=== PATIENT | female | born 1950 | race Caucasian/White ===

== ENCOUNTER → 2018-02-18 16:23 | Outpatient (CLI) | payer MEDICARE, OTHER, SELFPAY ==
--- NOTE | 2018-02-18 16:34 | DI.RAD.S_ITS ---
PROCEDURE: XR KNEE LT 1TO2V INDICATIONS: SYNOVIAL CYST OF POPLITEAL SPACE TECHNIQUE: 2 views of the knee were acquired. COMPARISON: None. FINDINGS: Bones: No fractures or dislocations. No suspicious bony lesions. Soft tissues: No joint effusion. No suspicious soft tissue calcifications. IMPRESSION: No abnormality seen. A synovial cyst would be better visualized by ultrasound or knee MRI. Dictated by: Lg Hudson M.D. on 02/18/2018 at 17:12 Approved by: Lg Hudson M.D. on 02/18/2018 at 17:12
== END ==
PROVIDERS: Family Provider Physician Assistant; PCP Physician Assistant; Visit Provider Physician Assistant
DX: M71.22 Synovial cyst of popliteal space [Baker], left knee (principal); M25.562 Pain in left knee
CPT/HCPCS: 73560

== ENCOUNTER → 2018-04-02 10:08 | Outpatient (CLI) | payer MEDICARE, OTHER, SELFPAY | PROVIDERS: Family Provider Physician Assistant; PCP Physician Assistant; Visit Provider Physician Assistant | DX: M85.88 Other specified disorders of bone density and structure, other site (principal); Z78.0 Asymptomatic menopausal state; Z82.62 Family history of osteoporosis | CPT/HCPCS: 77080 ==

== ENCOUNTER → 2018-05-22 08:56 | Outpatient (CLI) | payer MEDICARE, OTHER, SELFPAY ==
--- NOTE | 2018-05-22 | DI.CT.S_ITS ---
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 5 mm coronal and sagittal reformats were performed. For radiation dose reduction, the following was used: automated exposure control, adjustment of mA and/or kV according to patient size. COMPARISON: [facility], CT, ABDOMEN WITH CONTRAST, 04/03/2016, 9:44. [facility], CT, ABDOMEN WITH CONTRAST, 05/22/2017, 13:01. FINDINGS: Image quality: Excellent. Lung bases: Lung bases are clear. Heart size is normal. Solid organs: There are no suspicious liver lesions. Again noted are multiple stable liver hemangioma, and a right lobe liver focal scar. Gallbladder is surgically absent. There is stable mild biliary ductal dilatation.. Biliary system is non dilated. Pancreas enhances normally. Spleen is normal in size and enhancement. Remote right adrenal resection. Left adrenal is unremarkable. Kidneys demonstrate normal size and enhancement, without hydronephrosis. Peritoneum and bowel: Bowel loops demonstrate normal wall thickness and caliber. No free fluid or air. Nodes and vessels: No retroperitoneal or mesenteric adenopathy by size criteria. Aorta and inferior vena cava are normal in size. Miscellaneous: No ventral hernias. IMPRESSION: 1. Remote right adrenal resection. 2. No evidence of recurrent neoplasm or metastatic disease. 3. Stable liver hemangiomata. Dictated by: Jesus Murcia M.D. on 05/22/2018 at 11:33 Approved by: Jesus Murcia M.D. on 05/22/2018 at 11:37
[2018-05-22 09:28] LABS: Blood Urea Nitrogen 13 mg/dL (7-17); Estimated Glomerular Filt Rate > 60.0 mL/min (>60)
== END ==
LOC: CT 08:57 → LAB 09:00
PROVIDERS: Family Provider Physician Assistant; PCP Physician Assistant; Visit Provider Physician Assistant
DX: D44.10 Neoplasm of uncertain behavior of unspecified adrenal gland (principal)
CPT/HCPCS: 36415; 74160; 82565; 84520; Q9967

== ENCOUNTER → 2018-07-30 09:38 | Outpatient (CLI) | payer MEDICARE, OTHER, SELFPAY ==
--- NOTE | 2018-07-30 | DI.RAD.S_ITS ---
PROCEDURE: XR KNEE RT 1TO2V INDICATIONS: PREPATELLAR BURSITIS OF RIGHT KNEE TECHNIQUE: 2 views of the knee were acquired. COMPARISON: [facility], CR, XR KNEE LT 1TO2V, 02/18/2018, 16:18. FINDINGS: Bones: No fractures or dislocations. No suspicious bony lesions. There is minimal superior patellar enthesopathy. Soft tissues: Minimal right knee joint effusion. There is mild soft tissue edema overlying the right patella anteriorly. IMPRESSION: Minimal superior right patellar enthesopathy. Mild soft tissue edema overlying the right patella anteriorly. Dictated by: Remington Mccarthy M.D. on 07/30/2018 at 11:07 Approved by: Remington Mccarthy M.D. on 07/30/2018 at 11:11
== END ==
PROVIDERS: PCP Physician Assistant; Visit Provider Physician Assistant
DX: M70.41 Prepatellar bursitis, right knee (principal)
CPT/HCPCS: 73560

== ENCOUNTER → 2019-01-20 18:52 | Outpatient (ROUT) | payer MEDICARE, OTHER, SELFPAY ==
[2019-01-20 19:05] LABS: Add Manual Diff / Slide Review NO; Basophils Absolute Auto 0 /uL (0-100); Basophils Percent Auto 0.4 % (0-2); Eosinophils Absolute Auto 100 /uL (0-450); Eosinophils Percent Auto 2.3 % (2-4); Hematocrit 35.7 % (36-46); Hemoglobin 12.3 g/dL (12.0-16.0); Lymphocytes Absolute Auto 1500 /uL (1100-4500); Lymphocytes Percent Auto 33.2 % (25-40); Mean Corpuscular HGB Conc 34.6 % (30-36); Mean Corpuscular Hemoglobin 29.8 PG (26-34); Mean Corpuscular Volume 86.1 fL (80-100); Monocytes Absolute Auto 300 /uL (0-900); Monocytes Percent Auto 5.9 % (3-14); Neutrophils Absolute Auto 2600 /uL (1500-7000); Neutrophils Percent Auto 58.2 % (50-75); Platelet Count 184 X10^3/uL (150-400); Red Blood Cell Count 4.14 X10^6/uL (4.0-5.2); Red Cell Distribution Width 12.6 % (11.6-14.8); White Blood Cell Count 4.5 X10^3/uL (4.5-11.0)
[2019-01-20 19:16] LABS: Alanine Aminotransferase 23 IU/L (9-52); Albumin 3.8 g/dL (3.5-5.0); Albumin Globulin Ratio 1.5 (1.0-2.8); Alkaline Phosphatase 59 U/L (38-126); Aspartate Aminotransferase 26 IU/L (14-36); Bilirubin Total 0.4 mg/dL (0.2-1.3); Blood Urea Nitrogen 13 mg/dL (7-17); Calcium 9.6 mg/dL (8.4-10.2); Carbon Dioxide 29 mmol/L (22-32); Chloride 100 mmol/L (98-107); Cholesterol 150 mg/dL (140-199); Estimated Glomerular Filt Rate > 60.0 mL/min (>60); Globulin 2.6 g/dL (1.7-4.1); Glucose 83 mg/dL (80-110); HDL Cholesterol 70 mg/dL (40-60); HEMOLYSIS < 15 (0-50); LDL Cholesterol Calculated 69 mg/dL (<100); Potassium 4.4 mmol/L (3.4-5.1); Sodium 136 mmol/L (137-145); Total Protein 6.4 g/dL (6.3-8.2); Triglycerides 54 mg/dL (35-150)
[2019-01-20 19:47] LABS: TSH w/ Reflex to FT4 0.93 uIU/mL (0.47-4.68)
== END ==
PROVIDERS: PCP Physician Assistant; Visit Provider Physician Assistant
DX: E78.2 Mixed hyperlipidemia (principal); J30.2 Other seasonal allergic rhinitis; R53.83 Other fatigue
CPT/HCPCS: 80053; 80061; 84443; 85025

== ENCOUNTER → 2019-05-14 12:33 | Outpatient (CLI) | payer MEDICARE, OTHER, SELFPAY ==
[2019-05-14 14:17] LABS: BUN Creatinine Ratio 42.5 (6-22); Blood Urea Nitrogen 17 mg/dL (7-17); Estimated Glomerular Filt Rate > 60.0 mL/min (>60)
== END ==
PROVIDERS: PCP Physician Assistant; Visit Provider Physician Assistant
DX: E78.2 Mixed hyperlipidemia (principal); D35.00 Benign neoplasm of unspecified adrenal gland
CPT/HCPCS: 36415; 82565; 84520

== ENCOUNTER → 2019-05-26 08:53 | Outpatient (CLI) | payer MEDICARE, OTHER, SELFPAY ==
--- NOTE | 2019-05-26 09:52 | DI.CT.S_ITS ---
PROCEDURE: CT ABDOMEN W CON INDICATIONS: Benign neoplasm of unspecified adrenal gland TECHNIQUE: After the administration of oral and intravenous contrast, 5 mm thick sections acquired from the diaphragms to the iliac crests. 5 mm thick coronal and sagittal reformats were acquired. For radiation dose reduction, the following was used: automated exposure control, adjustment of mA and/or kV according to patient size. COMPARISON: [facility], CT, ABDOMEN WITH CONTRAST, 05/22/2017, 13:01. [facility], CT, ABDOMEN W&WO CONTRAST, 12/01/2014, 7:47. [facility], CT, CT ABDOMEN W CON, 05/22/2018, 10:10. FINDINGS: Image quality: Excellent. Lung bases: Lung bases are clear. Heart size is normal. Solid organs: Liver is normal in size and enhancement. Postoperative changes are present within hepatic segment VII. A small hemangioma is also redemonstrated at the dome of the right hepatic lobe. Gallbladder is surgically absent. Biliary system is non dilated. Pancreas enhances normally. Spleen is normal in size and enhancement. Right adrenal gland is surgically absent. No adrenal nodules. Kidneys are normal in size, without hydronephrosis. Peritoneum and bowel: Contrast enhanced bowel loops appear normal in caliber. No free fluid or air. Nodes and vessels: No retroperitoneal or mesenteric adenopathy by size criteria. Aorta and inferior vena cava are normal in size. Bones: No suspicious bony lesions. No vertebral body compression fractures. Miscellaneous: No ventral hernias. IMPRESSION: 1. No findings to suggest right adrenal gland tumor recurrence. Dictated by: Ernestina Darden M.D. on 05/26/2019 at 14:29 Approved by: Ernestina Darden M.D. on 05/26/2019 at 14:32
== END ==
PROVIDERS: PCP Physician Assistant; Visit Provider Physician Assistant
DX: D35.00 Benign neoplasm of unspecified adrenal gland (principal); D18.09 Hemangioma of other sites; Z90.49 Acquired absence of other specified parts of digestive tract
CPT/HCPCS: 74160; Q9967

== ENCOUNTER → 2019-09-29 12:37 | Outpatient (CLI) | payer MEDICARE, OTHER, SELFPAY ==
--- NOTE | 2019-09-29 | DI.RAD.S_ITS ---
PROCEDURE: XR LUMBAR SPINE 2-3V INDICATIONS: Segmental and somatic dysfunction of lumbar region TECHNIQUE: 3 views of the lumbar spine were acquired. COMPARISON: None. FINDINGS: Bones: 5 [id number] vertebrae are present. There is normal bony alignment. No vertebral body compression fractures. No suspicious bony lesions. Soft tissues: Overlying bowel gas pattern is normal. No suspicious soft tissue calcifications. IMPRESSION: Minimal degenerative disc disease along the low cervical spine. Mild facet osteoarthritis and become slightly more prominent from L3-S1. No subluxation is associated. By plain film imaging definite spinal and foraminal stenosis is not seen but MR scanning may be warranted depending on the clinical status. Dictated by: Lg Hudson M.D. on 09/29/2019 at 13:33 Approved by: Lg Hudson M.D. on 09/29/2019 at 13:34
== END ==
PROVIDERS: PCP Physician Assistant; Referring Provider Chiropractor; Visit Provider Chiropractor
DX: M99.03 Segmental and somatic dysfunction of lumbar region (principal); M54.6 Pain in thoracic spine; M47.816 Spondylosis without myelopathy or radiculopathy, lumbar region; M47.817 Spondylosis without myelopathy or radiculopathy, lumbosacral region
CPT/HCPCS: 72100

== ENCOUNTER → 2019-12-29 10:09 | Outpatient (CLI) | payer MEDICARE, OTHER, SELFPAY ==
--- NOTE | 2019-12-29 | DI.RAD.S_ITS ---
PROCEDURE: XR HIP W PEL IF DONE RT 2V INDICATIONS: PAIN IN RIGHT HIP TECHNIQUE: AP pelvis with lateral view(s) of the right hip(s). COMPARISON: [facility], CT, CT ABDOMEN W CON, 05/26/2019, 9:31. FINDINGS: Bones: No fractures or dislocations. Pelvic ring appears intact. No suspicious bony lesions. Mild joint narrowing with periarticular osteophyte formation. Degenerative disc and facet disease involves the inferior lumbar spine. Soft tissues: The visualized bowel gas pattern is normal. No suspicious soft tissue calcifications. IMPRESSION: Mild symmetric hip joint degeneration. Dictated by: Porter Castro [facility] Interpreted: Tamika Banks MD on 12/29/2019 at 10:47 Approved by: Tamika Banks M.D. on 12/29/2019 at 15:00
--- NOTE | 2019-12-29 | DI.RAD.S_ITS ---
PROCEDURE: XR KNEE RT 3V INDICATIONS: TROCHANTERIC BURSITIS OF RIGHT HIP TECHNIQUE: 3 views of the knee were acquired. COMPARISON: [facility], , KNEE 3V RIGHT, 07/17/2016, 14:27. FINDINGS: Bones: No fractures or dislocations. No suspicious bony lesions. Tricompartmental periarticular osteophyte formation. Soft tissues: No joint effusion. No suspicious soft tissue calcifications. IMPRESSION: Mild tricompartmental knee joint degeneration. Dictated by: Porter ROSAS Interpreted: Tamika Banks MD on 12/29/2019 at 10:46 Approved by: Tamika Banks M.D. on 12/29/2019 at 15:00
== END ==
PROVIDERS: PCP Physician Assistant; Referring Provider Physician Assistant; Visit Provider Physician Assistant
DX: M70.61 Trochanteric bursitis, right hip (principal); M25.551 Pain in right hip; M16.11 Unilateral primary osteoarthritis, right hip; M25.561 Pain in right knee; M17.11 Unilateral primary osteoarthritis, right knee
CPT/HCPCS: 73502; 73562

== ENCOUNTER → 2020-06-07 19:42 | Outpatient (ROUT) | payer MEDICARE, OTHER, SELFPAY | PROVIDERS: PCP Physician Assistant; Visit Provider Physician Assistant | DX: R35.0 Frequency of micturition (principal) | CPT/HCPCS: 87086 ==

== ENCOUNTER → 2021-02-03 09:05 | Outpatient (CLI) | payer MEDICARE, OTHER, SELFPAY ==
--- NOTE | 2021-02-03 10:09 | DI.CT.S_ITS ---
PROCEDURE: CT ABDOMEN PELVIS W CON INDICATIONS: Lower abdominal pain, unspecified TECHNIQUE: After the administration of oral and intravenous contrast, axial sections were acquired from the lung bases to the pubic symphysis. Coronal and sagittal reformats were performed. For radiation dose reduction, the following was used: automated exposure control, adjustment of mA and/or kV according to patient size. COMPARISON:[facility], CT, CT ABDOMEN W CON, 05/26/2019, 9:31. FINDINGS: Image quality: Excellent. Lung bases: Unremarkable. Heart: No significant findings. ABDOMEN: Liver: Liver demonstrates a nodular contour, as before. Postsurgical sequelae within hepatic segment VII, as before. No change in small hemangioma within the right hepatic dome posteriorly. Gallbladder: Is surgically absent Biliary ducts: Unremarkable. Pancreas: Unremarkable. Spleen: Unremarkable. Adrenal Glands: Unremarkable. Kidneys and Ureters: Unremarkable. Stomach and Bowel: There is mild thickening versus cell tubal distention of the gastric antrum. Small bowel is grossly unremarkable. Appendix is within normal limits. There is thickening versus suboptimal distension of the transverse colon, splenic flexure, and sigmoid colon. Peritoneum: No abnormal intraperitoneal fluid. No free air. Ventral Wall: No hernia. Abdominal Nodes: No retroperitoneal or mesenteric adenopathy by size criteria. Vessels: Aorta and inferior vena cava are normal in size. PELVIS: Pelvic Organs: 25 mm cyst within the left adnexa. Bladder: Unremarkable. Pelvic Nodes: No enlarged lymph nodes. Miscellaneous: No inguinal hernias are seen. Bones: Unremarkable. IMPRESSION: 1. Thickening versus suboptimal distension of the gastric antrum and colon. Differential considerations include infection and inflammation. Findings could be further assessed with endoscopy, if clinically indicated. 2. Normal appendix. 3. Cirrhosis. Dictated by: Keyon Allen M.D. on 02/03/2021 at 10:53 Approved by: Keyon Allen M.D. on 02/03/2021 at 10:57
== END ==
PROVIDERS: PCP Physician Assistant; Referring Provider Internal Medicine; Visit Provider Internal Medicine
DX: R10.30 Lower abdominal pain, unspecified (principal); K74.60 Unspecified cirrhosis of liver; Z90.49 Acquired absence of other specified parts of digestive tract
CPT/HCPCS: 74177

== ENCOUNTER → 2021-02-16 10:03 | Outpatient (CLI) | payer MEDICARE, OTHER, SELFPAY ==
--- NOTE | 2021-02-16 | DI.RAD.S_ITS ---
PROCEDURE: XR KNEE RT 3V INDICATIONS: Other chronic pain TECHNIQUE: 3 views of the knee were acquired. COMPARISON: [facility], , XR KNEE RT 3V, 12/29/2019, 10:21. FINDINGS: Bones: No fractures or dislocations. No suspicious bony lesions. Moderate medial compartment osteoarthritis which have progressed in the interval since prior exam. Mild patellofemoral and lateral compartment osteoarthritis. Soft tissues: Large suprapatellar joint effusion. No suspicious soft tissue calcifications. IMPRESSION: 1. Tricompartmental right knee osteoarthritis. 2. Large nonspecific suprapatellar joint effusion. Occult injury including ligamentous injury is not excluded by this study. No If symptoms and/or clinical suspicion for pathology persists, further assessment with MRI should be considered. Dictated by: Shavon Chin MD, PhD on 02/16/2021 at 12:24 Approved by: Shavon Chin MD, PhD on 02/16/2021 at 12:26
--- NOTE | 2021-02-16 | DI.RAD.S_ITS ---
PROCEDURE: XR KNEE LT 1TO2V INDICATIONS: Other chronic pain TECHNIQUE: 1 views of the knee were acquired. COMPARISON: [facility], , XR KNEE LT 1TO2V, 02/18/2018, 16:18. FINDINGS: Bones: No fractures or dislocations. No suspicious bony lesions. Mild to moderate medial and lateral compartment osteoarthritis. Soft tissues: No joint effusion. No suspicious soft tissue calcifications. IMPRESSION: Osteoarthritis. Dictated by: Shavon Chin MD, PhD on 02/16/2021 at 12:23 Approved by: Shavon Chin MD, PhD on 02/16/2021 at 12:24
== END ==
PROVIDERS: PCP Physician Assistant; Referring Provider Internal Medicine; Visit Provider Internal Medicine
DX: M17.0 Bilateral primary osteoarthritis of knee (principal); M25.561 Pain in right knee; M25.461 Effusion, right knee; G89.29 Other chronic pain
CPT/HCPCS: 73560; 73562

== ENCOUNTER → 2021-04-24 08:09 | Outpatient (CLI) | payer MEDICARE, OTHER, SELFPAY ==
[2021-04-24 11:33] LABS: COVID19 -Nasal RAPID Negative (Negative)
== END ==
PROVIDERS: PCP Physician Assistant; Visit Provider Physician Assistant
DX: Z20.822 Contact with and (suspected) exposure to COVID-19 (principal)
CPT/HCPCS: 87635; C9803

== ENCOUNTER 2021-04-25 10:08 | Day surgery (SDC) | payer MEDICARE, OTHER, SELFPAY ==
--- NOTE | 2021-04-25 | PATH_ITS ---
[facility] Accession Number: [id number] . 01 Material submitted: . PART A: colon - TRANSVERSE COLON POLYPS PART B: sigmoid colon - SIGMOID COLON POLYP . 02 Diagnosis: A. Transverse Colon, Polyps, Biopsies: Tubular adenomas. . B. Sigmoid Colon, Polyp, Biopsy: Tubular adenoma. MRV 05/02/2021 1310 Local . 02 Electronically signed: . Quyen Ashford MD, Pathologist NPI- [id number] . 01 Gross description: . A. Specimen A is received in formalin labeled colon polyp transverse and consists of three rushing-pink fragments of soft tissue, measuring 0.5 x 0.4 x 0.2 cm in aggregate. The specimen is entirely submitted in cassette A1. B. Specimen B is received in formalin labeled sigmoid colon polyp and consists of a 0.4 x 0.3 x 0.2 cm rushing-pink fragment of soft tissue, which is entirely submitted in cassette B1. ([id number]) /[facility] 04/27/2021 1630 Local . 02 Pathologist provided ICD-10: D12.3, D12.5 . 02 CPT . 468901, [id number] Performed at: 01 [facility] [address], [place], [place] [id number] MD Anand Cartagena MD Phone: [phone] Performed at: 02 [facility] [address] [place], [place] [id number] MD Quyen Ashford MD Phone: [phone]
[2021-04-25 10:24] VITALS: BP 130/68; PULSE 51; RESP 16; TEMP 36.1; O2SAT 99; BMI 21.6
--- NOTE | 2021-04-25 10:31 | PM.HP.1 ---
History of Present Illness History of Present Illness Date Patient Seen: 04/25/21 Time Patient Seen: 10:31 Chief complaint: SDC Narrative: I reviewed 's note. No changes. Last colonoscopy was 2017. Multiple tubular adenomas were removed at that time. Patient History Medical History Ganglion cyst Family & Social History Social History: household members spouse Tobacco & Substance use: Smoking Status Never smoker alcohol intake never Substance Use Type does not use Meds Home Medications and Allergies Home Medications Medication Instructions Recorded Confirmed Type aspirin 81 mg PO DAILY 04/24/21 04/25/21 History estradiol 1 tab PO DAILY 04/24/21 04/25/21 History lorazepam 1 mg tablet (Ativan) 50 mg PO DAILY 04/24/21 04/25/21 History oxybutynin chloride 5 mg 5 mg PO DAILY 04/24/21 04/25/21 History tablet,extended release 24 hr sertraline 100 mg tablet 100 mg PO DAILY 04/24/21 04/25/21 History trazodone 50 mg tablet 50 mg PO DAILY 04/24/21 04/25/21 History Allergies Allergy/AdvReac Type Severity Reaction Status Date / Time No Known Drug Allergies Allergy Verified 04/24/21 13:52 Review of Systems Review of Systems ROS: Yes All systems reviewed with the patient and are negative except as otherwise documented Exam Vital Signs (past 8 hours): - 04/25/21 10:24 Temperature 97 F L Pulse Rate 51 L Respiratory Rate 16 Blood Pressure 130/68 Pulse Oximetry 99 Oxygen Delivery Method Room Air Const General: cooperative and comfortable Orientation: alert HENUT Head: normocephalic Ears: external ears normal Nose: external nose normal Face and sinus: normal facial exam Mouth: oral mucosae normal Eyes General: appearance normal, both eyes and all related structures Neck Neck: normal visual inspection Chest Chest: normal inspection of the chest Resp Effort & Inspection: normal respiratory effort Cardio Rate: regular rate GI Inspection: normal to inspection Skin General: no rashes or lesions noted and No jaundice Neuro General: patient alert and moves all extremities Cognition: normal cognition Speech: speech normal Extrem General: no pedal edema Psych Appearance: grossly normal Assessment & Plan Assessment & Plan narrative: 70-year-old female with a personal history of colon polyps. She has an abnormal CT scan which showed left colon and gastric antrum thickening. She also had a nodular liver. EGD and colonoscopy. Therefore pursued today. Time Spent With Patient Critical Care time: I spent a total of [] minutes of critical care time on this patient's care today; this time is exclusive of procedural time.
[2021-04-25] MEDS: SODIUM CHLORIDE 0.9% 1,000 ML 84 ML IV (10:34)
--- NOTE | 2021-04-25 10:34 | PM.PREOP ---
Pre-operative Note COVID-19 COVID-19 status: Negative Result date/Date tested (Pos, Neg/Pending): 04/24/21 Interval Note History & Physical reviewed/Exam performed by Physician: Yes Changes to H&P: No ASA Class (for procedural sedation): II
--- NOTE | 2021-04-25 11:25 | P.OP.EGD&C_ITS ---
Operative Date/Time/Diagnoses Date of procedure: 04/25/21 Time of procedure: 11:25 Pre-op diagnosis: Abnormal imaging personal history of colon polyps Post-op diagnosis: same Procedure & Clinicians Study performed: EGD and colonoscopy with cold forceps polypectomy and cold snare polypectomy. Same procedure as scheduled: Yes Indications: Abnormal imaging, personal history of colon polyps Surgeon: Agustin Ramírez Procedure Notes SCOAP/Timeout: Done Procedure in detail: After the risks and benefits were explained, written and verbal informed consent was obtained. The patient was brought into the procedure room and placed into the left lateral decubitus position. Please see nurse superintendent oil field drilling notes for sedation details. The scope was introduced into the mouth through the bite block and advanced under direct visualization to the 2nd portion of the duodenum. The scope was slowly withdrawn carefully examining the mucosa for any defects or lesions. Retroflexed views were accomplished in the stomach. The stomach was decompressed, the scope was then removed from the patient who tolerated the procedure well. Patient was then turned around a digital rectal examination accomplished no significant pathology appreciated. The scope was introduced into the rectum and advanced to the cecum as identified by the appendiceal orifice and ileocecal valve. The scope was slowly withdrawn to carefully examine the mucosa for any defects or lesions. Multiple direct views were made through the dentate line for exclusion of pathology. The colon was decompressed the scope removed from the patient who tolerated the procedure well. Bowel prep adequate Pediatric colonoscope Scope withdrawal time: 15 minutes Sedation minutes: 34 Complications: none Impression: 1. Duodenum: This was normal from the bulb through the 2nd portion. 2. Stomach: No ulcers no erosions no mass lesions. No significant mucosal pathology throughout. No varices. Retroflexed views were unremarkable with the exception of a subtle sliding hiatal hernia 3. Esophagus: Squamocolumnar junction correlated with the top of the gastric folds. No acute erosive changes no strictures no mass lesions. No varices noted. 4. Colon: The patient had faint melanosis coli. In the transverse colon there were 2 diminutive polyps removed with cold forceps. In the sigmoid colon there was a 5 mm sessile polyp removed with cold snare. I did not appreciate any inflammation or thickening throughout the colon and in the left colon in particular considering CT report. Endoscopic diagnosis 1. Minimal subtle sliding hiatal hernia 2. Otherwise visually unremarkable EGD 3. Colon polyps the Post-procedure Plan for aftercare: 1. Await histopathology 2. Repeat colonoscopy 3 years. 3. Follow up GI clinic with Dr. Ramos Disposition: PACU
[2021-04-25 11:27] VITALS: BP 124/97; PULSE 51; RESP 11; TEMP 35.9; O2SAT 99
[2021-04-25 11:33] VITALS: BP 123/33; PULSE 51; RESP 12; O2SAT 100
[2021-04-25 11:38] VITALS: BP 121/57; PULSE 47; RESP 12; O2SAT 99
[2021-04-25 11:43] VITALS: BP 125/59; PULSE 45; RESP 12; TEMP 35.9; O2SAT 99
[2021-04-25 11:53] VITALS: BP 126/58; PULSE 42; RESP 12; TEMP 35.9; O2SAT 99
== END 2021-04-25 12:10 | disposition home or self-care (01) ==
PROVIDERS: PCP Physician Assistant; Referring Provider Internal Medicine Gastroenterology; Visit Provider Internal Medicine Gastroenterology
PROC: 0DJ08ZZ Inspection of Upper Intestinal Tract, Via Natural or Artificial Opening Endoscopic (ICD-10-PCS; CPT 43235; principal; 2021-04-25 13:00)
PROC: 0DJD8ZZ Inspection of Lower Intestinal Tract, Via Natural or Artificial Opening Endoscopic (ICD-10-PCS; CPT 45378; 2021-04-25 13:00)
DX: D12.3 Benign neoplasm of transverse colon (principal); Z86.010 Personal history of colon polyps; K63.89 Other specified diseases of intestine; K44.9 Diaphragmatic hernia without obstruction or gangrene; D12.5 Benign neoplasm of sigmoid colon
CPT/HCPCS: 45385; 43239; J2704

== ENCOUNTER → 2021-12-14 08:30 | Outpatient (CLI) | payer MEDICARE, OTHER, SELFPAY ==
--- NOTE | 2021-12-14 08:33 | DI.RAD.S_ITS ---
PROCEDURE: XR KNEE RT 3V INDICATIONS: bilateral chronic knee pain TECHNIQUE: 3 views of the knee were acquired. COMPARISON: [facility], , XR KNEE RT 3V, 02/16/2021, 10:05. FINDINGS: Bones: No fractures or dislocations. No suspicious bony lesions. There is mild bilateral femorotibial joint space narrowing and small intercondylar osteophytes. Soft tissues: No joint effusion. No suspicious soft tissue calcifications. IMPRESSION: Mild degenerative change. Dictated by: Ernestina Darden M.D. on 12/14/2021 at 12:40 Approved by: Ernestina Darden M.D. on 12/14/2021 at 12:40
--- NOTE | 2021-12-14 08:33 | DI.RAD.S_ITS ---
PROCEDURE: XR KNEE LT 3V INDICATIONS: bilateral chronic knee pain TECHNIQUE: 3 views of the knee were acquired. COMPARISON: [facility], CR, XR KNEE RT 3V, 02/16/2021, 10:05. FINDINGS: Bones: There is mild bilateral femorotibial compartment narrowing and intercondylar osteophytes. No acute fracture or dislocation. Soft tissues: There is likely a small knee joint effusion. IMPRESSION: Joint effusion and mild degenerative change. Dictated by: Ernestina Darden M.D. on 12/14/2021 at 12:39 Approved by: Ernestina Darden M.D. on 12/14/2021 at 12:39
== END ==
PROVIDERS: PCP Physician Assistant; Referring Provider Physician Assistant; Visit Provider Physician Assistant
DX: M25.562 Pain in left knee (principal); M25.561 Pain in right knee; G89.29 Other chronic pain
CPT/HCPCS: 73562

== ENCOUNTER → 2022-05-10 13:20 | Outpatient (CLI) | payer MEDICARE, OTHER, SELFPAY ==
--- NOTE | 2022-05-10 | DI.MG.S_ITS ---
BILATERAL DIGITAL DIAGNOSTIC MAMMOGRAM 3D/2D: 05/10/2022 CLINICAL: Mastodynia. Comparison is made to exams dated: 07/06/2021 mammogram, 06/21/2020 mammogram, and 06/16/2019 mammogram - [facility]. Both breasts are heterogeneously dense, which may obscure small masses (category c / 51-75% glandular tissue). There is a biopsy clip in the right breast. No significant masses, calcifications, or other findings are seen in either breast. There has been no significant interval change. IMPRESSION: NEGATIVE There is no mammographic evidence of malignancy. A 1 year screening mammogram is recommended. Based on the Tyrer Cuzick model (a risk assessment model) the patient's lifetime risk is 8.3% and her 10 year risk is 4.9%. According to the ACR, ACS, and NCCN guidelines, an annual breast MRI exam along with mammogram is recommended if the patient's lifetime risk is 20% or greater. This exam was interpreted at Station ID: [id number]. NOTE: For mammograms, a report in lay terms will be sent to the patient. Approximately 15% of breast malignancies will not be visualized mammographically. In the management of a palpable breast mass, a negative mammogram must not discourage biopsy of a clinically suspicious lesion. Electronically Signed By: Anshu Cruz M.D., jr/piedad:05/10/2022 13:43:38 letter sent: Normal Exam ACR BI-RADS Category 1: Negative [id number]
== END ==
PROVIDERS: PCP Physician Assistant; Referring Provider Physician Assistant; Visit Provider Physician Assistant
DX: N64.4 Mastodynia (principal)
CPT/HCPCS: 77066; G0279

== ENCOUNTER → 2022-08-02 09:44 | Outpatient (CLI) | payer MEDICARE, OTHER, SELFPAY ==
--- NOTE | 2022-08-02 10:06 | DI.DEXA.S_ITS ---
Bone Density Report Name: AMELIA RAZA Age: 72 Sex: Female Ethnicity: White Date of : 1950 Indication: osteopenia; Referring Provider: FELIPE DÍAZ Study: Bone densitometry was performed. Exam Date: August 02, 2022 Accession number: [id number] Bone Density: Region BMD T-score Z-score Classification AP Spine(L1-L4) 0.897 -1.4 0.8 Osteopenia Femoral Neck (Left) 0.756 -0.8 1.0 Normal Total Hip (Left) 0.780 -1.3 0.2 Osteopenia Femoral Neck (Right) 0.709 -1.3 0.5 Osteopenia Total Hip (Right) 0.799 -1.2 0.3 Osteopenia Total Hip Mean 0.789 -1.3 0.3 Osteopenia World Health Organization criteria for BMD impression classify patients as: Normal (T-score at or above -1.0), Osteopenia (T-score between -1.0 and -2.5), or Osteoporosis (T-score at or below -2.5). 10-year Fracture Risk(1): Major Osteoporotic Fracture 8.4% Hip Fracture 1.1% Reported Risk Factors: [place] (), Neck BMD=0.709, BMI=21.6 (1) FRAX(R) Version 3.08. Fracture probability calculated for an untreated patient. Fracture probability may be lower if the patient has received treatment. Previous Exams: -- Region Exam Age BMD T-score BMD Change BMD Change Date g/cm2 vs Baseline vs Previous -- AP Spine (L1-L4) 08/02/2022 72 0.897 -1.4 -0.033 (-3.5%)# -0.033 (-3.5%)# 04/02/2018 67 0.930 -1.1 Total Hip(Left) 08/02/2022 72 0.780 -1.3 -0.069 (-8.2%)# -0.069 (-8.2%)# 04/02/2018 67 0.850 -0.8 Total Hip(Right) 08/02/2022 72 0.799 -1.2 -0.003 (-0.4%)# -0.003 (-0.4%)# 04/02/2018 67 0.802 -1.1 -- *Denotes significance at 95% confidence level, LSC for AP Spine = 0.022 g/cm2, LSC for Total Hip = 0.027 g/cm2 # Denotes dissimilar scan types or analysis methods Impression: The patient has low bone mass, based on the Total Spine T-score. The patient has an estimated ten-year risk of hip fracture of 1.1% and an estimated ten-year risk of major fracture of 8.4%, based on the WHO FRAX algorithm. No significant bone loss was observed. Discussion: BONE DENSITY IS LOW AT ONE OR MORE SKELETAL SITES. This patient's lowest T-score is low at one or more skeletal sites. It meets the World Health Organization's (WHO) criteria for ?low bone mass? (T-score between -1.0 and -2.5). The patient's 10-year risk of fracture as calculated by FRAX is less than the threshold where pharmacological therapy is recommended by the National Osteoporosis Foundation (NOF). However, all treatment decisions require clinical judgment and consideration of individual patient factors, including patient preferences, comorbidities, previous drug use, risk factors not captured in the FRAX model (e.g., frailty, falls, vitamin D deficiency, increased bone turnover, interval significant decline in bone density) and possible under or overestimation of fracture risk by FRAX. The patient should follow a healthful lifestyle (good nutrition with adequate calcium and vitamin D, and appropriate weight-bearing exercise). Follow-Up: Consider repeating this study in 2 to 3 years to reassess this patient's status, or sooner if there is some new clinical indication. Reported by: JOSE JALLOH M.D. on 08/02/2022 10:18:00 AM.
== END ==
PROVIDERS: PCP Student in an Organized Health Care Education/Training Program; Referring Provider Student in an Organized Health Care Education/Training Program; Visit Provider Student in an Organized Health Care Education/Training Program
DX: M85.88 Other specified disorders of bone density and structure, other site (principal); Z78.0 Asymptomatic menopausal state
CPT/HCPCS: 77080

== ENCOUNTER → 2022-12-28 18:17 | Outpatient (CLI) | payer MEDICARE, OTHER, SELFPAY | PROVIDERS: PCP Student in an Organized Health Care Education/Training Program; Visit Provider Physician Assistant | DX: R19.8 Other specified symptoms and signs involving the digestive system and abdomen (principal) | CPT/HCPCS: 87086 ==

== ENCOUNTER → 2023-01-11 07:22 | Outpatient (CLI) | payer MEDICARE, OTHER, SELFPAY ==
--- NOTE | 2023-01-11 | DI.CT.S_ITS ---
PROCEDURE: CT ABDOMEN PELVIS WO CON INDICATIONS: LOWER ABD PAIN TECHNIQUE: Axial sections were acquired from the lung bases to the pubic symphysis. Coronal and sagittal reformats were performed. For radiation dose reduction, the following was used: automated exposure control, adjustment of mA and/or kV according to patient size. COMPARISON: [facility], CT, CT ABDOMEN PELVIS W CON, 02/03/2021, 10:12. FINDINGS: Image quality: Excellent. Lung bases: Lung bases are clear. Heart size is normal. Solid organs: Liver: The liver has no mass or intrahepatic biliary ductal dilatation. Surgical clips in the region of hepatic segment VII. Biliary: Status post cholecystectomy. Pancreas: The pancreas has no mass or ductal dilatation. There is no surrounding inflammation. Spleen: Normal size. There are no masses. Adrenals: Postoperative changes in the nephrectomy bed with multiple surgical clip seen. No evidence of recurrence neoplasm. Kidneys: No obstructive calculus or hydronephrosis. No solid mass. No cystic mass. Peritoneum and bowel: The distal esophagus and stomach are normal. The small bowel has a normal caliber and appearance. The terminal ileum is normal. The large bowel has a normal caliber and appearance. The appendix is normal. No free fluid or air. Nodes and vessels: No retroperitoneal or mesenteric adenopathy by size criteria. The aorta has atherosclerosis with no aneurysmal dilatation. Miscellaneous: No abdominal wall mass or hernia. PELVIS: Genitourinary: The bladder has no wall thickening or mass. No bladder calcifications. Bones: No suspicious bony lesions. No vertebral body compression fractures. IMPRESSION: 1. Postoperative changes in the right adrenalectomy bed with no evidence of recurrence neoplasm. 2. No evidence of metastatic disease. Dictated by: Daron Solano M.D. on 01/11/2023 at 10:30 Approved by: Daron Solano M.D. on 01/11/2023 at 10:37
--- NOTE | 2023-01-11 | DI.RAD.S_ITS ---
PROCEDURE: XR HIP W PEL IF DONE LT 2V INDICATIONS: HIP PAIN TECHNIQUE: AP pelvis with lateral view(s) of the left hip(s). COMPARISON: [facility], , XR HIP W PEL IF DONE RT 2V, 12/29/2019, 10:21. FINDINGS: Bones: No fractures or dislocations. Mild symmetric degenerative changes. No erosions. No interval change compared to 12/29/2019. Pelvic ring appears intact. No suspicious bony lesions. Soft tissues: The visualized bowel gas pattern is normal. No suspicious soft tissue calcifications. IMPRESSION: Mild symmetric degenerative changes, otherwise normal hips. If symptoms persist. Consider MRI. Dictated by: Daron Solano M.D. on 01/11/2023 at 9:02 Approved by: Daron Solano M.D. on 01/11/2023 at 9:03
== END ==
PROVIDERS: PCP Student in an Organized Health Care Education/Training Program; Referring Provider Student in an Organized Health Care Education/Training Program; Visit Provider Student in an Organized Health Care Education/Training Program
DX: R10.30 Lower abdominal pain, unspecified (principal); M25.552 Pain in left hip
CPT/HCPCS: 73502; 74176

== ENCOUNTER → 2023-02-19 06:32 | Outpatient (CLI) | payer MEDICARE, OTHER, SELFPAY ==
--- NOTE | 2023-02-19 06:34 | DI.CT.S_ITS ---
PROCEDURE: CT ABDOMEN PELVIS W CON INDICATIONS: lower abd pain TECHNIQUE: After the administration of oral and intravenous contrast, axial sections were acquired from the lung bases to the pubic symphysis. Coronal and sagittal reformats were performed. For radiation dose reduction, the following was used: automated exposure control, adjustment of mA and/or kV according to patient size. COMPARISON:[facility], CT, CT ABDOMEN PELVIS W CON, 02/03/2021, 10:12. FINDINGS: Image quality: Excellent. Lung bases: Unremarkable. Heart: No significant findings. ABDOMEN: Liver: Again noted is an unchanged small right lobe hepatic dome hemangioma. A 2nd small benign-appearing low-density lesion at the dome is also stable. A peripheral low-density lesion in the lateral segment of the left lobe of the liver is also stable. Again noted is a nodular contour of the surface of the liver suggesting possible cirrhotic change.. Gallbladder: Surgically absent Biliary ducts: Intrahepatic ducts and extrahepatic ducts are chronically dilated post cholecystectomy. Pancreas: Unremarkable. Spleen: Unremarkable. Adrenal Glands: Unremarkable. Kidneys and Ureters: Unremarkable. Stomach and Bowel: Stomach, small bowel loops, and colon are unremarkable. Large diffuse fecal load. Peritoneum: No abnormal intraperitoneal fluid. No free air. Ventral Wall: No hernia. Abdominal Nodes: No retroperitoneal or mesenteric adenopathy by size criteria. Vessels: Aorta and inferior vena cava are normal in size. PELVIS: Pelvic Organs: Again noted is a left adnexal cyst which has increased in size. On previous image 62/2 it measured 2.5 cm. On current image 64/2 it measures 3.1 cm. Uterus is unremarkable . Bladder: Unremarkable. Pelvic Nodes: No enlarged lymph nodes. Miscellaneous: No inguinal hernias are seen. Bones: Unremarkable. IMPRESSION: 1. Suggestion of cirrhotic change in the liver. 2. Stable low-density liver lesions. 3. Interval increase in the size of a left adnexal cystic lesion, from 2.5 cm to 3.1 cm. Findings include benign etiologies as well as indolent malignancy. Current recommendations in postmenopausal females with edge excellent cysts of this size are to image every 12 months, either with CT or ultrasound. 4. Constipation. Comment: Recommend follow-up ultrasound or CT in 12 months for the left adnexal cystic lesion. Dictated by: Jesus Murcia M.D. on 02/19/2023 at 13:03 Approved by: Jesus Murcia M.D. on 02/19/2023 at 13:14
[2023-02-19 07:23] LABS: Estimated Glomerular Filt Rate > 60 mL/min (>60)
== END ==
PROVIDERS: PCP Student in an Organized Health Care Education/Training Program; Referring Provider Registered Nurse; Visit Provider Registered Nurse
DX: N94.89 Other specified conditions associated with female genital organs and menstrual cycle (principal); K76.9 Liver disease, unspecified; K59.00 Constipation, unspecified; R10.30 Lower abdominal pain, unspecified
CPT/HCPCS: 36415; 74177; 82565; Q9967

== ENCOUNTER 2023-03-24 15:55 | Observation (INO) | payer MEDICARE, OTHER, SELFPAY ==
[2023-03-24] VITALS (26 sets, daily range): BP systolic 94–131; BP diastolic 51–89; PULSE 68–136; RESP 11–23; TEMP 36.8; O2SAT 92–100; BMI 21.2
--- NOTE | 2023-03-24 16:07 | DI.RAD.S_ITS ---
PROCEDURE: XR CHEST 1V INDICATIONS: chest pain TECHNIQUE: One view of the chest was acquired. COMPARISON: [facility], CT, CT ABDOMEN PELVIS W CON, 02/19/2023, 7:56. [facility], CR, CHEST 1 VIEW, 03/12/2015, 15:03. FINDINGS: Surgical changes and devices: Right upper quadrant clips are seen. Lungs and pleura: On this semiupright portable chest examination, no large pneumothorax or large pleural effusions are seen. No focal infiltrates are seen. Mediastinum: Mediastinal contours appear normal. Heart size is normal. Bones and chest wall: No suspicious bony lesions. Mild dextroconvex scoliotic curvature is seen. Age-appropriate bony degenerative changes are seen. Overlying soft tissues appear unremarkable. IMPRESSION: No acute cardiopulmonary abnormality is seen. Postoperative and degenerative changes are seen. Dictated by: Alexander Doherty M.D. on 03/24/2023 at 15:49 Approved by: Alexander Doherty M.D. on 03/24/2023 at 15:50
[2023-03-24 16:33] LABS: Add Manual Diff / Slide Review NO; Basophils Absolute Auto 0 /uL (0-100); Basophils Percent Auto 0.7 % (0-2); Eosinophils Absolute Auto 100 /uL (0-450); Eosinophils Percent Auto 1.8 % (2-4); Hematocrit 37.9 % (36-46); Hemoglobin 13.1 g/dL (12.0-16.0); Lymphocytes Absolute Auto 2200 /uL (1100-4500); Lymphocytes Percent Auto 36.7 % (25-40); Mean Corpuscular HGB Conc 34.6 % (30-36); Mean Corpuscular Hemoglobin 29.6 PG (26-34); Mean Corpuscular Volume 85.5 fL (80-100); Monocytes Absolute Auto 400 /uL (0-900); Monocytes Percent Auto 6.8 % (3-14); Neutrophils Absolute Auto 3200 /uL (1500-7000); Platelet Count 229 X10^3/uL (150-400); Red Blood Cell Count 4.44 X10^6/uL (4.0-5.2); Red Cell Distribution Width 13.5 % (11.6-14.8); White Blood Cell Count 5.9 X10^3/uL (4.5-11.0)
[2023-03-24 16:38] LABS: Prothrombin Time 11.2 SECONDS (9.4-12.5)
[2023-03-24 16:41] LABS: PTT Partial Thromboplastin Tim 28 SECONDS (25.1-36.5)
[2023-03-24 16:43] LABS: Alanine Aminotransferase 22 IU/L (<35); Albumin 4.7 g/dL (3.5-5.0); Albumin Globulin Ratio 1.3 (1.0-2.8); Alkaline Phosphatase 66 U/L (38-126); Aspartate Aminotransferase 27 IU/L (14-36); BUN Creatinine Ratio 33.3 (6-22); Bilirubin Total 0.5 mg/dL (0.2-1.3); Blood Urea Nitrogen 17 mg/dL (7-17); Calcium 10.1 mg/dL (8.4-10.2); Carbon Dioxide 29 mmol/L (22-32); Chloride 101 mmol/L (98-107); Creatine Kinase 39 U/L (30-135); Estimated Glomerular Filt Rate > 60 mL/min (>60); Globulin 3.6 g/dL (1.7-4.1); Glucose 100 mg/dL (80-110); HEMOLYSIS < 15 (0-50); Lipase 103 U/L (23-300); Magnesium 2.2 mg/dL (1.6-2.3); Potassium 3.7 mmol/L (3.4-5.1); Sodium 135 mmol/L (137-145); Total Protein 8.3 g/dL (6.3-8.2)
[2023-03-24 16:54] LABS: Troponin I 0.017 ng/mL (0.01-0.034)
[2023-03-24] MEDS: ASPIRIN 81 MG CHEW TAB 324 MG PO (17:30)
[2023-03-24 17:53] LABS: NT-proBNP (BNP-Adult 18+) 576 pg/mL (<125)
--- NOTE | 2023-03-24 18:14 | ED.CHESTPAIN ---
HPI - Chest Pain General Chief Complaint: Chest Pain Stated Complaint: dizzy/chest tight/post liver biopsy Time Seen by Provider: 03/24/23 17:54 Source: patient Mode of arrival: Ambulatory Limitations: no limitations History of Present Illness HPI narrative: Patient is a 72-year-old female. Not on anticoagulation. No prior history of atrial fibrillation. Approximately 1.5 weeks ago she underwent an outpatient liver biopsy. A abnormal finding was found on a CT scan that was ordered by her primary doctor. The CT scan was ordered because she was having ?stomach issues? she does not know the results of the liver biopsy. Since that time she has felt some chest tightness and dizziness and shortness of breath with exertion. No specific chest pain. No palpitations. When she is lying in bed she is not having shortness of breath when she gets up and move around it does happened. No headache. Related Data Home Medications Medication Instructions Recorded Confirmed aspirin 81 mg PO DAILY 04/24/21 03/24/23 oxybutynin chloride 5 mg 5 mg PO DAILY Bladder spasms 04/24/21 03/24/23 tablet,extended release 24 hr sertraline 100 mg tablet 150 mg PO BEDTIME Depression 04/24/21 03/24/23 trazodone 50 mg tablet 25 mg PO BEDTIME Insomnia 04/24/21 03/24/23 ascorbic acid (vitamin C) 1,000 mg 1 g PO DAILY Supplement 03/24/23 03/24/23 capsule cholecalciferol (vitamin D3) 25 25 mcg PO DAILY Supplement 03/24/23 03/24/23 mcg (1,000 unit) capsule dicyclomine 20 mg tablet 20 mg PO DAILY abdominal pain 03/24/23 03/24/23 estradiol 0.01% (0.1 mg/gram) 1 g vaginal 2XW Hormone replacement 03/24/23 03/24/23 vaginal cream evening primrose oil-linoleic 1 cap PO DAILY Supplement 03/24/23 03/24/23 acid-gamolenic acid 1,000 mg capsule ([place] Oil) lorazepam 1 mg tablet 0.5 mg PO BID PRN Anxiety 03/24/23 03/24/23 omega-3 fatty acids 1 cap PO DAILY Supplement 03/24/23 03/24/23 vit C-vit M-qbiado-exzatsmn-omega 1 cap PO DAILY [facility] 03/24/23 03/24/23 3 100 mg-15 unit-2 mg-100 mg capsule Allergies Allergy/AdvReac Type Severity Reaction Status Date / Time No Known Drug Allergies Allergy Verified 03/24/23 16:06 Review of Systems Constitutional Constitutional: Reports system reviewed and no additional complaints, except as documented Cardiovascular Cardiovascular: Reports system reviewed and no additional complaints, except as documented Respiratory Respiratory: Reports system reviewed and no additional complaints, except as documented Gastrointestinal Gastrointestinal: Reports system reviewed and no additional complaints, except as documented Integumentary/Breasts Skin/Breast: Reports system reviewed and no additional complaints, except as documented Neurologic Neurologic: Reports system reviewed and no additional complaints, except as documented Hematologic/Lymphatic On Anticoagulants: No Patient History Medical History Ganglion cyst Social History household members: spouse and children Smoking Status: Never smoker alcohol intake: never Smoking Status: Never smoker Substance Use Type: does not use Exam Initial Vital Signs Initial Vital Signs: Vital Signs Temperature 98.3 F 03/24/23 16:01 Pulse Rate 116 H 03/24/23 16:01 Respiratory Rate 16 03/24/23 16:01 Blood Pressure 126/89 03/24/23 16:01 Pulse Oximetry 100 03/24/23 16:01 Oxygen Delivery Method Room Air 03/24/23 16:01 Const General: cooperative and healthy appearing [facility] Head: normal to inspection and normocephalic Resp Effort & Inspection: normal respiratory effort Auscultation: clear to auscultation bilaterally Cardio Rate: tachycardic Rhythm: abnormal rhythm Skin General: no rashes or lesions noted Neuro General: patient alert, patient awake and moves all extremities Extrem General: No edema Course Orders Ordered: ED Orders 03/24/23 16:07 XR chest 1V Stat 03/24/23 16:15 BNP [NT-proBNP (BNP-Adult 18+)] Stat Complete Blood Count AUTO DIFF Stat Comprehensive Metabolic Panel Stat Lipase Stat Magnesium Stat PTT Partial Thromboplastin Timmy Stat Prothrombin Time INR Stat Troponin & CK Cardiac Panel Stat 03/24/23 16:19 EKG-12 Lead Stat 03/24/23 18:52 EKG-12 Lead Stat Acetaminophen (Acetaminophen 325 Mg Tablet) 650 mg PO Q6H PRN PRN Reason: Fever/Mild Pain (1-3) Al Hydrox/Mg Hydrox/Simethicone (Mag Hydrox/Alum/Simeth 30 Ml Udc) 30 ml PO Q6HR PRN PRN Reason: Dyspepsia Apixaban (Apixaban 5 Mg Tablet) 5 mg PO BID JONA Diltiazem HCl (Diltiazem 5 Mg/Ml Sdv) 10 mg IV Q2HR PRN PRN Reason: Heart Rate- High DILTIAZEM (Diltiazem 125 Mg/125 Ml-D5w) 125 mg in 125 mls @ 5 mls/hr IV TITRATE JONA; Protocol Last Titration: 03/24/23 20:13 Dose: 0 mg/hr, 0 mls/hr Documented By: Admin: 03/24/23 18:25 Dose: 5 mg/hr, 5 mls/hr Documented By: JEFRY Metoprolol Tartrate (Metoprolol Ir 25 Mg Tablet) 25 mg PO BID JONA Naloxone HCl (Naloxone 0.4 Mg/Ml Vial) 0.2 mg IV Q2MIN PRN PRN Reason: Opiate Reversal Ondansetron HCl (Ondansetron 4 Mg/2 Ml Inj) 4 mg IV Q8HR PRN PRN Reason: Nausea And Vomiting Ondansetron HCl (Ondansetron 4 Mg Odt) 4 mg PO Q8HR PRN PRN Reason: Nausea And Vomiting Discontinued Medications Aspirin (Aspirin 81 Mg Chew Tab) 324 mg PO NOW ONE Stop: 03/24/23 16:08 Last Admin: 03/24/23 17:30 Dose: 324 mg Documented By: JEFRY Diltiazem HCl (Diltiazem 5 Mg/Ml Sdv) 10 mg IV NOW ONE Stop: 03/24/23 18:16 Last Admin: 03/24/23 18:25 Dose: 10 mg Documented By: JEFRY Metoprolol Succinate (Metoprolol Er 25 Mg Tablet) 25 mg PO NOW ONE Stop: 03/24/23 19:32 Last Admin: 03/24/23 19:42 Dose: 25 mg Documented By: GABY Vital Signs Vital signs: Vital Signs - 8 hr 03/24/23 17:30 03/24/23 17:30 03/24/23 18:00 Pulse Rate 124 H 124 H Respiratory Rate 16 16 Blood Pressure 96/67 Pulse Oximetry 98 98 03/24/23 18:03 03/24/23 18:03 03/24/23 18:25 Pulse Rate 117 H 124 H Respiratory Rate 21 Blood Pressure 115/71 123/68 Pulse Oximetry 99 03/24/23 18:30 03/24/23 18:30 03/24/23 19:00 Pulse Rate 109 H Respiratory Rate 11 L Blood Pressure 101/66 111/67 Pulse Oximetry 99 03/24/23 19:00 03/24/23 19:15 03/24/23 19:15 Pulse Rate 76 76 Respiratory Rate 21 Blood Pressure 131/77 Pulse Oximetry 98 99 03/24/23 19:30 03/24/23 19:30 03/24/23 19:42 Pulse Rate 82 88 Respiratory Rate 18 Blood Pressure 107/54 L 107/54 L Pulse Oximetry 95 03/24/23 19:45 03/24/23 19:45 03/24/23 20:00 Pulse Rate 77 72 Respiratory Rate 20 16 Blood Pressure 97/57 L Pulse Oximetry 98 98 03/24/23 20:01 03/24/23 20:01 03/24/23 20:12 Pulse Rate 75 72 Respiratory Rate 15 Blood Pressure 112/63 112/63 Pulse Oximetry 97 03/24/23 20:15 03/24/23 20:15 03/24/23 20:30 Pulse Rate 76 68 Respiratory Rate 17 15 Blood Pressure 104/68 Pulse Oximetry 97 98 03/24/23 20:30 03/24/23 20:46 03/24/23 20:46 Pulse Rate 73 Respiratory Rate 16 Blood Pressure 106/51 L 108/52 L Pulse Oximetry 97 03/24/23 21:00 03/24/23 21:00 Pulse Rate 74 Respiratory Rate 17 Blood Pressure 113/59 L Pulse Oximetry 97 MDM - Chest Pain Lab Data Attestation: I reviewed the patient's lab results. 03/24/23 16:15 03/24/23 16:15 Labs: Lab Results 03/24/23 Range/Units 16:15 WBC 5.9 (4.5-11.0) X10^3/uL RBC 4.44 (4.0-5.2) X10^6/uL Hgb 13.1 (12.0-16.0) g/dL Hct 37.9 (36-46) % MCV 85.5 (80-100) fL MCH 29.6 (26-34) PG MCHC 34.6 (30-36) % RDW 13.5 (11.6-14.8) % Plt Count 229 (150-400) X10^3/uL Neut % (Auto) 54.0 (50-75) % Lymph % (Auto) 36.7 (25-40) % [place] % (Auto) 6.8 (3-14) % Eos % (Auto) 1.8 L (2-4) % Baso % (Auto) 0.7 (0-2) % Neut # (Auto) 3200 (4225-7514) /uL Lymph # (Auto) 2200 (4376-5208) /uL [place] # (Auto) 400 (0-900) /uL Eos # (Auto) 100 (0-450) /uL Baso # (Auto) 0 (0-100) /uL PT 11.2 (9.4-12.5) SECONDS INR 1.0 (0.9-1.3) APTT 28 (25.1-36.5) SECONDS Sodium 135 L (137-145) mmol/L Potassium 3.7 (3.4-5.1) mmol/L Chloride 101 (98-107) mmol/L Carbon Dioxide 29 (22-32) mmol/L BUN 17 (7-17) mg/dL Creatinine 0.51 L (0.52-1.04) mg/dL Estimated GFR > 60 (>60) mL/min BUN/Creatinine Ratio 33.3 H (6-22) Glucose 100 (80-110) mg/dL Calcium 10.1 (8.4-10.2) mg/dL Magnesium 2.2 (1.6-2.3) mg/dL Total Bilirubin 0.5 (0.2-1.3) mg/dL AST 27 (14-36) IU/L ALT 22 (<35) IU/L Alkaline Phosphatase 66 (38-126) U/L Total Creatine Kinase 39 (30-135) U/L Troponin I 0.017 (0.01-0.034) ng/mL NT-Pro-B Natriuret Pep 576 H (<125) pg/mL Total Protein 8.3 H (6.3-8.2) g/dL Albumin 4.7 (3.5-5.0) g/dL Globulin 3.6 (1.7-4.1) g/dL Albumin/Globulin Ratio 1.3 (1.0-2.8) Lipase 103 (23-300) U/L Urine Dip Bedside Urine Glucose Negative Bedside Urine Bilirubin - Negative Bedside Urine Ketone - Negative Urine Specific Mona 1.00 Bedside Urine Occult Blood +/- Bedside Urine pH 8.0 Bedside Urine Protein - Negative Bedside Urine Urobilinogen - Negative Bedside Urine Nitrite - Negative Bedside Urine Leukocytes - Negative Esterase Imaging Data Chest x-ray: Radiologist's Impression: PROCEDURE: XR CHEST 1V INDICATIONS: chest pain TECHNIQUE: One view of the chest was acquired. COMPARISON: [facility], CT, CT ABDOMEN PELVIS W CON, 02/19/2023, 7:56. [facility], CR, CHEST 1 VIEW, 03/12/2015, 15:03. FINDINGS: Surgical changes and devices: Right upper quadrant clips are seen. Lungs and pleura: On this semiupright portable chest examination, no large pneumothorax or large pleural effusions are seen. No focal infiltrates are seen. Mediastinum: Mediastinal contours appear normal. Heart size is normal. Bones and chest wall: No suspicious bony lesions. Mild dextroconvex scoliotic curvature is seen. Age-appropriate bony degenerative changes are seen. Overlying soft tissues appear unremarkable. IMPRESSION: No acute cardiopulmonary abnormality is seen. Postoperative and degenerative changes are seen. ECG Data Attestation: I personally reviewed and interpreted this ECG as follows: Interpretation: Atrial fibrillation Ventricular rate 131 Normal axis Left bundle-branch block Nonspecific ST T wave changes Repeat EKG Atrial fibrillation Ventricular rate is [address] T wave changes MDM Narrative Medical decision making narrative: Patient has a very benign abdominal exam. Is in AFib with RVR. She is never had a diagnosis of this. Not a candidate for cardioversion as we do not know specifically when she went into AFib. Most likely has been sometime within the past 1.5 weeks. Patient was given Cardizem bolus and started on a drip. This improved her heart rate however she was still in AFib. She was then given an oral dose of metoprolol. We were then able to stop the Cardizem drip. She is still in AFib but is now rate controlled. Discussed the case with Dr. Garcia hospitalist on-call who will admit for further evaluation and treatment. Discussed the need for admission with the patient. She expressed understanding and agreement. Discharge Plan Departure Patient Disposition: Admitted As Inpatient Clinical Impression: Atrial fibrillation with RVR Admit Date/Time: 03/24/23 21:04 Admit Provider: Panchito Trejo
[2023-03-24] MEDS: DILTIAZEM 125 MG/125 ML PIGGYBACK IV (18:25)
[2023-03-24] MEDS: dilTIAZem 5 MG/ML SDV 10 MG IV (18:25)
[2023-03-24] MEDS: METOPROLOL ER 25 MG TABLET PO (19:42)
--- NOTE | 2023-03-24 21:44 | DI.ECHO.S_ITS ---
[facility] +---------+ : : [address] : : : : [id number] : : : : Phone: [phone]+ Echocardiogram Report + + :Name: AMELIA RAZA Study Date: 03/25/2023 Height: 67 in : :[facility] ReadingLocation: Weight: 134 lb: : Gender: Female BSA: 1.7 m2 : :: 1950 Age: 72 yrs BP: 89/54 mmHg: :Reason For Study: ATRIAL FIBRILLATION : :Ordering Physician: ROWDY, : :TONY Performed By: Damaris Alicea : :Referring: TONY RENO : + + Interpretation Summary The left ventricle is normal in size and wall thickness. The left ventricular ejection fraction is normal. The ejection fraction is estimated to be 55-60%. There has been no significant change since the previous exam. The right ventricle is mildly dilated. The right ventricular systolic function is normal. No critical valvular pathology. No significant pulmonary hypertension. There is mild luminal irregularity and echogenicity in the abdominal aorta, suggestive of aortic atherosclerotic disease. Procedure: A two-dimensional transthoracic echocardiogram with color flow and Doppler was performed. The study quality was technically adequate. Comparison is made with the echocardiogram of 02/24/2015. The patient was in sinus bradycardia with heart rates between 42-55 bpm during the exam. Left Ventricle: The left ventricle is normal in size and wall thickness. There is no thrombus. The ejection fraction is estimated to be 55-60%. The left ventricular ejection fraction is normal. There has been no significant change since the previous exam. There are no focal wall motion abnormalities. Diastolic parameters suggest probable normal left ventricular diastolic function and normal filling pressures. Right Ventricle: The right ventricle is mildly dilated. The right ventricular systolic function is normal. Atria: The left atrium is severely dilated. The left atrium has mildly increased in size since the prior echo exam. The right atrium is moderately dilated. There is no Doppler evidence for an interatrial shunt. Mitral Valve: The mitral valve leaflets appear mildly thickened, but open well. There is mild mitral annular calcification. There is mild mitral regurgitation. Compared to the prior echo study, there has been no change in the severity of mitral regurgitation. Aortic Valve: The aortic valve is trileaflet. The aortic valve opens well. There is no aortic valve stenosis. There is mild aortic regurgitation. Previously trivial AI. Tricuspid Valve: The tricuspid valve is normal in structure and function. There is mild tricuspid regurgitation. Compared to the prior echo exam, there has been no change in TR severity. Pulmonic Valve: The pulmonic valve leaflets are thin and pliable; valve motion is normal. There is trace pulmonic regurgitation. Great Vessels: The aortic root is normal size. The dimensions of the ascending aorta are normal. There is mild luminal irregularity and echogenicity in the abdominal aorta, suggestive of aortic atherosclerotic disease. The IVC is dilated (diameter is greater than 2.1 cm) yet it collapses greater than 50% with a sniff. This suggests a right atrial pressure of 8 mm Hg. No significant pulmonary hypertension. Pericardium/ Pleura There is no pericardial effusion. There is no pleural effusion. MMode/2D Measurements & Calculations LVIDd: 4.6 cm LVOT diam: 2.0 cm LVIDs: 3.4 cm Ao root diam: 3.4 cm FS: 26.7 % asc Aorta Diam: 3.0 cm EPSS: 0.36 cm IVSd: 0.60 cm LVPWd: 0.74 cm LV maher. diameter/BSA (cm/m^2): 2.7 LV sys. diameter/BSA (cm/m^2): 2.0 LA A2 area: 23.1 cm2 RA long axis: 5.4 cm LA A4 area: 24.0 cm2 RA area: 19.0 cm2 LA length (vol): 5.6 cm RA vol: 56.6 ml LA vol: 84.0 ml RA : 33.2 ml/m2 LA vol index: 49.2 ml/m2 IVC diam: 2.2 cm RVD1 (basal): 4.1 cm RVD2 (mid): 3.1 cm TAPSE: 1.8 cm Doppler Measurements & Calculations Ao V2 max: 104.5 cm/sec LVOT Max Amaury: 77.5 cm/sec Ao V2 mean: 75.1 cm/sec LV V1 max P.4 mmHg Ao max P.4 mmHg LV V1 VTI: 16.8 cm Ao mean P.5 mmHg PAULINA(I,D): 2.1 cm2 Ao V2 VTI: 25.3 cm PAULINA(V,D): 2.3 cm2 sev ratio: 0.66 PAULINA indexed to BSA (cm^2/m^2): 1.2 MV E max amaury: 64.0 cm/sec TR max amaury: 184.4 cm/sec MV A max amaury: 27.1 cm/sec TR max P.7 mmHg MV E/A: 2.4 PA V2 max: 66.2 cm/sec Med Peak E' Amaury: 9.0 cm/sec PA V2 mean: 48.1 cm/sec E/E' med: 7.1 PA mean P.99 mmHg Lat Peak E' Amaury: 9.4 cm/sec PA pr(Accel): 27.6 mmHg E/E' lat: 6.8 E/e' average: 7.0 MV dec time: 0.25 sec SV(LVOT): 52.2 ml Reading Physician:09:26 AM
[2023-03-24 23:59] LABS: MRSA (Nasal) PCR Not Detected (Not Detect)
[2023-03-25 04:00] VITALS: BP 102/58; PULSE 63; RESP 23; TEMP 36.1; O2SAT 100
[2023-03-25 04:42] LABS: Add Manual Diff / Slide Review NO; Basophils Absolute Auto 0 /uL (0-100); Basophils Percent Auto 0.6 % (0-2); Eosinophils Absolute Auto 100 /uL (0-450); Eosinophils Percent Auto 1.7 % (2-4); Hematocrit 34.3 % (36-46); Lymphocytes Absolute Auto 2200 /uL (1100-4500); Lymphocytes Percent Auto 47.8 % (25-40); Mean Corpuscular Hemoglobin 29.7 PG (26-34); Mean Corpuscular Volume 84.9 fL (80-100); Monocytes Absolute Auto 400 /uL (0-900); Neutrophils Absolute Auto 1900 /uL (1500-7000); Neutrophils Percent Auto 41.9 % (50-75); Platelet Count 199 X10^3/uL (150-400); Red Blood Cell Count 4.04 X10^6/uL (4.0-5.2); Red Cell Distribution Width 13.7 % (11.6-14.8); White Blood Cell Count 4.6 X10^3/uL (4.5-11.0)
[2023-03-25 04:48] LABS: BUN Creatinine Ratio 32.6 (6-22); Blood Urea Nitrogen 14 mg/dL (7-17); Calcium 9.6 mg/dL (8.4-10.2); Carbon Dioxide 28 mmol/L (22-32); Chloride 104 mmol/L (98-107); Estimated Glomerular Filt Rate > 60 mL/min (>60); Glucose 88 mg/dL (80-110); HEMOLYSIS < 15 (0-50); Magnesium 2.2 mg/dL (1.6-2.3); Potassium 4.4 mmol/L (3.4-5.1); Sodium 135 mmol/L (137-145)
--- NOTE | 2023-03-25 06:06 | P.HP_ITS ---
History of Present Illness History of Present Illness Date Patient Seen: 03/24/23 Chief complaint: dizzy/chest tight/post liver biopsy Narrative: 72 y/o with PMH of depression, OP, developed nausea, vague abdominal tenderness, exertional dyspnea, 1-2 weeks ago. She was referred by PCP for outpatient CT abdomen, and subsequently underwent liver biopsy. She does not have biopsy results, apparently not malignant. In the ED with new onset rapid A-fib. She was given 10 mg Diltiazem IVP, followed by drip for several hours. She was then given 25 mg of metoprolol po. At the time of admission her rate slowed down. At 6 am she is hypotensive 89/54 and bradycardic 39 complaining on mild headache. [facility] Medical History (Updated 03/25/23 @ 06:23 by Panchito Garcia MD) Anxiety and depression Urine incontinence Depression Ganglion cyst Social History household members: spouse and children Smoking Status: Never smoker alcohol intake: never Meds Home Medications and Allergies Home Medications Medication Instructions Recorded Confirmed Type aspirin 81 mg PO DAILY 04/24/21 03/24/23 History oxybutynin chloride 5 mg 5 mg PO DAILY Bladder spasms 04/24/21 03/24/23 History tablet,extended release 24 hr sertraline 100 mg tablet 150 mg PO BEDTIME Depression 04/24/21 03/24/23 History trazodone 50 mg tablet 25 mg PO BEDTIME Insomnia 04/24/21 03/24/23 History ascorbic acid (vitamin C) 1,000 mg 1 g PO DAILY Supplement 03/24/23 03/24/23 History capsule cholecalciferol (vitamin D3) 25 25 mcg PO DAILY Supplement 03/24/23 03/24/23 History mcg (1,000 unit) capsule dicyclomine 20 mg tablet 20 mg PO DAILY abdominal pain 03/24/23 03/24/23 History estradiol 0.01% (0.1 mg/gram) 1 g vaginal 2XW Hormone replacement 03/24/23 03/24/23 History vaginal cream evening primrose oil-linoleic 1 cap PO DAILY Supplement 03/24/23 03/24/23 History acid-gamolenic acid 1,000 mg capsule ([place] Oil) lorazepam 1 mg tablet 0.5 mg PO BID PRN Anxiety 03/24/23 03/24/23 History omega-3 fatty acids 1 cap PO DAILY Supplement 03/24/23 03/24/23 History vit C-vit B-dewcko-hvhlfwsn-omega 1 cap PO DAILY [facility] 03/24/23 03/24/23 History 3 100 mg-15 unit-2 mg-100 mg capsule Allergies Allergy/AdvReac Type Severity Reaction Status Date / Time No Known Drug Allergies Allergy Verified 03/24/23 16:06 Review of Systems Constitutional Comments: w/o fever or chills Cardiovascular Comments: w/o palpitations or chest pain Respiratory Comments: exertional dyspnea Gastrointestinal Comments: abdominal tenderness, nausea Genitourinary Comments: chronic urinary incontinence, w/o dysuria Neurologic Comments: w/o weakness or numbness Exam Vital Signs (past 8 hours): - 03/24/23 22:28 03/25/23 04:00 Temperature 96.9 F L Pulse Rate 63 Respiratory Rate 23 Blood Pressure 102/58 L Pulse Oximetry 100 Oxygen Delivery Method Room Air Oxygen Flow Rate 0 Oxygen Delivery Method Room Air Oxygen Flow Rate 0 Const Other: laying in bed in no distress HENMT Other: normocephalic Eyes Other: cyril, eomi Resp Other: CTA Cardio Other: irregularly irregular GI Other: not distended Skin Other: w/o rashes Neuro Other: w/o deficits Extrem Other: w/o swelling Psych Other: lucid, decisional Objective ECG Impression: Rapid A-fib Labs 03/25/23 03:55 03/25/23 03:55 Labs: Laboratory Results - last 24 hr 03/24/23 03/24/23 03/25/23 16:15 22:25 03:55 WBC 5.9 4.6 RBC 4.44 4.04 Hgb 13.1 12.0 Hct 37.9 34.3 L MCV 85.5 84.9 MCH 29.6 29.7 MCHC 34.6 35.0 RDW 13.5 13.7 Plt Count 229 199 Neut % (Auto) 54.0 41.9 L Lymph % (Auto) 36.7 47.8 H [place] % (Auto) 6.8 8.0 Eos % (Auto) 1.8 L 1.7 L Baso % (Auto) 0.7 0.6 Neut # (Auto) 3200 1900 Lymph # (Auto) 2200 2200 [place] # (Auto) 400 400 Eos # (Auto) 100 100 Baso # (Auto) 0 0 PT 11.2 INR 1.0 APTT 28 Sodium 135 L 135 L Potassium 3.7 4.4 Chloride 101 104 Carbon Dioxide 29 28 BUN 17 14 Creatinine 0.51 L 0.43 L Estimated GFR > 60 > 60 BUN/Creatinine Ratio 33.3 H 32.6 H Glucose 100 88 Calcium 10.1 9.6 Magnesium 2.2 2.2 Total Bilirubin 0.5 AST 27 ALT 22 Alkaline Phosphatase 66 Total Creatine Kinase 39 Troponin I 0.017 NT-Pro-B Natriuret Pep 576 H Total Protein 8.3 H Albumin 4.7 Globulin 3.6 Albumin/Globulin Ratio 1.3 Lipase 103 Nasal Screen MRSA (PCR) Not detected Assessment & Plan Assessment and plan (1) Atrial fibrillation with RVR: Status: Acute Plan: - telemetry monitoring - likely started 2 weeks ago - after the Tx with ED - bradycardic and hypotensive, still in A-fib - Echo pending - given ASA 324 in ED - started Eliquis - reassess (2) Depression: Status: Acute (3) Urine incontinence: Status: Acute Plan: Oxybutynin (4) Anxiety and depression: Status: Acute Plan: Zoloft, Trazodone, Ativan Quality VTE Deep Vein Thrombosis/Pulmonary Embolism Present on Admission: No
[2023-03-25 06:55] VITALS: BP 89/54; PULSE 39; RESP 14; O2SAT 98
[2023-03-25 08:10] VITALS: BP 86/52; PULSE 50; RESP 16; O2SAT 100
[2023-03-25] MEDS: OXYBUTYNIN 5 MG ER TAB PO (08:41)
[2023-03-25] MEDS: APIXABAN 5 MG TABLET PO (08:41)
[2023-03-25 09:07] VITALS: TEMP 36.1
[2023-03-25 10:14] VITALS: BP 92/53; PULSE 50
--- NOTE | 2023-03-25 10:38 | PM.DS.1 ---
History of Present Illness History of Present Illness Date Patient Seen: 03/25/23 Time Patient Seen: 10:38 Chief complaint: dizzy/chest tight/post liver biopsy Narrative: Per admitting provider, 72 y/o with PMH of depression, OP, developed nausea, vague abdominal tenderness, exertional dyspnea, 1-2 weeks ago. She was referred by PCP for outpatient CT abdomen, and subsequently underwent liver biopsy. She does not have biopsy results, apparently not malignant. In the ED with new onset rapid A-fib. She was given 10 mg Diltiazem IVP, followed by drip for several hours. She was then given 25 mg of metoprolol po. At the time of admission her rate slowed down. At 6 am she is hypotensive 89/54 and bradycardic 39 complaining on mild headache. Discharge Providers Provider Date of admission: 03/24/23 21:04 Discharge Date: 03/25/23 Primary care physician: Delaney Rios PA-C Discharge provider: Roland Strong DO Summary Hospital Course Discharge Diagnosis: (1) Paroxysmal Atrial fibrillation with RVR, RVR resolved (2) Depression: (3) Urine incontinence, chronic (4) Anxiety and depression: Hospital Course: This is a 72 year old female who presented to the emergency room and was admitted with a new diagnosis of atrial fibrillation. It is unclear if this was related to recent liver biopsy a little over a week ago, but had no abdominal pain or symptoms to warrant further imaging at this time. She was initially in RVR in the ED, started on diltiazem infusion and given oral metoprolol. After this, patient developed bradycardia into the 30s. She had no symptoms at that time. Her HR improved with witholding of these medications and she coverted to NSR. She had a mild headache but no ongoing symptoms and felt improved. Echocardiogram was unremarkable. She was started on apixaban given elevated [id number] score, and provided a coupon for this for 30 days. Ongoing anticoagulation should be discussed with primary care provider if there is cost concerns with this medication. She reports resting HR in the 40s typically at home. She was given a prescription for 12.5 mg of metoprolol daily (she was given 25 mg in the ER). She was advised not to start this medication tomorrow unless HR is above 60. If she continues to remain braydcardic this medication could also be used as needed if her RVR returns. Further outpatient evaluation with PCP is recommended, and consideration for cardiology referral. Time Spent with Patient Time spent: Greater than 30 minutes Exam Vital Signs (past 8 hours): - 03/25/23 04:00 03/25/23 06:55 03/25/23 08:10 Temperature 96.9 F L Pulse Rate 63 39 L 50 L Respiratory Rate 23 14 16 Blood Pressure 102/58 L 89/54 L 86/52 L Pulse Oximetry 100 98 100 Oxygen Delivery Method Oxygen Flow Rate 0 0 0 03/25/23 08:55 03/25/23 09:07 03/25/23 10:14 Temperature 97.0 F L Pulse Rate 50 L Respiratory Rate Blood Pressure 92/53 L Pulse Oximetry Oxygen Delivery Method Room Air Oxygen Flow Rate Oxygen Delivery Method Room Air Oxygen Flow Rate 0 Narrative Exam Narrative: General:? Patient is well developed and well nourished, in no distress at this time. HEENT:? Normocephalic, atraumatic, extraocular muscles intact, oral pharynx is clear and mucous membranes are moist. Neck: supple and symmetric, trachea is midline, no cervical adenopathy. Negative for JVD Chest:? Normal AP diameter and contour without kyphoscoliosis, no tachypnea, equal chest rise bilaterally. Lungs:? CTA b/l no wheezing rhonchi or rales. Cardio:?RRR no m/r/g. Abdomen: S NT ND. No CVA tenderness. Musculoskeletal:? Muscle strength and tone are equal within normal limits, no deformity. Extremities: No edema or joint effusions. No cyanosis or clubbing. Skin:? Pale,? Warm to touch,dry and intact without rashes, ulcerations or petechiae.? Neuro:? Alert and orientated x3,? sensation to touch intact in all extremities, no gross deficits noted of cranial nerves. Psych:? Patient has a well-kept appearance, appropriate affect, mental status attitude thought context and judgment are appropriate for age. Objective Labs 03/25/23 03:55 03/25/23 03:55 Labs: Laboratory Results - last 24 hr 03/24/23 03/24/23 03/25/23 16:15 22:25 03:55 WBC 5.9 4.6 RBC 4.44 4.04 Hgb 13.1 12.0 Hct 37.9 34.3 L MCV 85.5 84.9 MCH 29.6 29.7 MCHC 34.6 35.0 RDW 13.5 13.7 Plt Count 229 199 Neut % (Auto) 54.0 41.9 L Lymph % (Auto) 36.7 47.8 H [place] % (Auto) 6.8 8.0 Eos % (Auto) 1.8 L 1.7 L Baso % (Auto) 0.7 0.6 Neut # (Auto) 3200 1900 Lymph # (Auto) 2200 2200 [place] # (Auto) 400 400 Eos # (Auto) 100 100 Baso # (Auto) 0 0 PT 11.2 INR 1.0 APTT 28 Sodium 135 L 135 L Potassium 3.7 4.4 Chloride 101 104 Carbon Dioxide 29 28 BUN 17 14 Creatinine 0.51 L 0.43 L Estimated GFR > 60 > 60 BUN/Creatinine Ratio 33.3 H 32.6 H Glucose 100 88 Calcium 10.1 9.6 Magnesium 2.2 2.2 Total Bilirubin 0.5 AST 27 ALT 22 Alkaline Phosphatase 66 Total Creatine Kinase 39 Troponin I 0.017 NT-Pro-B Natriuret Pep 576 H Total Protein 8.3 H Albumin 4.7 Globulin 3.6 Albumin/Globulin Ratio 1.3 Lipase 103 Nasal Screen MRSA (PCR) Not detected [facility] Medical History (Updated 03/25/23 @ 06:23 by Panchito Garcia MD) Anxiety and depression Urine incontinence Depression Ganglion cyst Social History household members: spouse and children Smoking Status: Never smoker alcohol intake: never Discharge Plan Discharge Plan Patient Disposition: Home Provider Discharge Comment: You were admitted to the hospital with atrial fibrillation, which was treated in the ER but you developed a low heart rate. I do recommend a beta germaine, which you should take daily but do not start unless your HR is above 60 at home. Do not take it if your heart rate in the morning is below 60. If your heart rate is always below 60 at home, you can use this medication as needed if your HR becomes fast again. I do recommend a blood thinner for now, please discuss ongoing treatment with your primary care provider as soon as possible. Discharge orders & Medications Prescriptions: New apixaban 5 mg tablet 5 mg PO BID 30 Days Qty: 60 0RF metoprolol succinate 25 mg tablet extended release 24 hr 12.5 mg PO DAILY 90 Days Qty: 45 0RF Continued oxybutynin chloride 5 mg tablet extended release 24hr 5 mg PO DAILY sertraline 100 mg tablet 150 mg PO BEDTIME trazodone 50 mg tablet 25 mg PO BEDTIME dicyclomine 20 mg tablet 20 mg PO DAILY lorazepam 1 mg tablet 0.5 mg PO BID MDD 1 mg PRN (Reason: Anxiety) estradiol 0.01 % (0.1 mg/gram) Cream 1 g VAGINAL 2XW cholecalciferol (vitamin D3) 25 mcg (1,000 unit) Capsule 25 mcg PO DAILY omega-3 fatty acids Capsule 1 cap PO DAILY [place] Oil 1,000 mg Capsule 1 cap PO DAILY vit C-vit T-bqkyed-csb-om-3 [id number] cu-pbok-aj-mg Capsule 1 cap PO DAILY ascorbic acid (vitamin C) 1,000 mg Capsule 1 g PO DAILY Discontinued aspirin 81 mg PO DAILY Follow up/Referrals: Delaney Rios, [facility] [Primary Care Provider] - Diet/Activity/Treatments Diet: Diet as Tolerated and Regular Activity: As tolerated, no restrictions. Visit Report/Discharge Packet Instructions: DI for Atrial Fibrillation, Metoprolol, Apixaban Stand Alone Forms: Patient Portal/API, Stroke Signs & Symptoms Discharge Data Primary Care Provider: Delaney Rios Attending Provider: Panchito Trejo Admit Date/Time: 03/24/23 21:04 Quality VTE Deep Vein Thrombosis/Pulmonary Embolism Present on Admission: No
--- NOTE | 2023-03-25 12:18 | CM.DANOTE ---
DCP Assessment Note Brief Patient is a 72yo F here following afib/dizzy/tight chest. PCP Delaney Reese Medicare and Analy WILSON reviewed EMR. From provider in rounds, patient likely to d/c today pending echo results. Patient d/c home prior to being seen by this author. From chart, patient lives at home with spouse and adult son in [place]. No needs from CM team identified at this time. Plan: d/c home with family today, no needs from CM team. STEVE Santiago Discharge Planning/Care Management Advanced directive, confirm from FAMILY Start: 03/25/23 08:53 Freq: Q24H Status: Discharge Protocol: Document 03/25/23 08:53 KERVIN (Rec: 03/25/23 08:54 KERVIN [id number]) Advance Directive, confirm on record Time 08:54 Person contacted pt Copy received No CM Discharge Assessment Start: 03/25/23 12:17 Freq: Status: Active Protocol: Document 03/25/23 12:17 SL (Rec: 03/25/23 12:18 [id number]) Discharge Planning Assessment Assigned [employer] STEVE Dinero DPOA/Assigned Designee Name Alphonse Patterson (spouse) Contact Information [phone] Advance Directives? Yes Advance Directives on File No History Provided By Medical Record Prior Living Arrangements House Comment Lives with spouse and adult son Household Members spouse,children Barriers to Discharge No Discharge Plan Home Transportation Arrangement family in [place] Referrals Initiated None needed Whiteboard Updated in Patient Room with No name and ext. # of [employer] Review Status In Process Next Review Type Continued Stay Review
== END 2023-03-25 12:03 | disposition home or self-care (01) ==
LOC: ED 18:19 → AC 21:23 → ICU 03-25 07:47 → AC 03-25 11:22
PROVIDERS: Emergency Medicine; Admitting Provider Internal Medicine; Emergency Provider Emergency Medicine; PCP Student in an Organized Health Care Education/Training Program; Referring Provider Emergency Medicine; Visit Provider Internal Medicine
DX: I48.91 Unspecified atrial fibrillation (principal); F32.A Depression, unspecified; R32 Unspecified urinary incontinence; F41.9 Anxiety disorder, unspecified; I48.0 Paroxysmal atrial fibrillation
CPT/HCPCS: 36415; 71045; 80048; 80053; 81003; 82550; 83690; 83735; 83880; 84484; 85025; 85610; 85730; 87797; 93005; 93306; 96365; 96366; 96376; 99284; G0378

== ENCOUNTER 2023-03-27 11:02 | Emergency (ER) | payer MEDICARE, OTHER, SELFPAY ==
[2023-03-24 22:28] VITALS: BMI 21.2
--- NOTE | 2023-03-27 | DI.RAD.S_ITS ---
PROCEDURE: XR CHEST 1V INDICATIONS: FALL TECHNIQUE: One view of the chest was acquired. COMPARISON: [facility], CR, XR CHEST 1V, 03/24/2023, 16:21. FINDINGS: Surgical changes and devices: None. Lungs and pleura: Lungs are clear. No pleural effusions or pneumothorax. Mediastinum: Mediastinal contours appear normal. Heart size is normal. Bones and chest wall: No suspicious bony lesions. Overlying soft tissues appear unremarkable. IMPRESSION: No acute cardiopulmonary abnormality is seen. Dictated by: Ernestina Darden M.D. on 03/27/2023 at 12:08 Approved by: Ernestina Darden M.D. on 03/27/2023 at 12:13
[2023-03-27 11:21] VITALS: BP 147/64; PULSE 46; RESP 16; TEMP 36.4; O2SAT 100; BMI 21.2
--- NOTE | 2023-03-27 11:35 | DI.CT.S_ITS ---
PROCEDURE: CT HEAD/BRAIN WO CON INDICATIONS: head pressure left side TECHNIQUE: Noncontrast 4.5 mm thick angled axial sections acquired from the foramen magnum to the vertex, with coronal and sagittal reformats. For radiation dose reduction, the following was used: automated exposure control, adjustment of mA and/or kV according to patient size. COMPARISON: None. FINDINGS: Image quality: Excellent. CSF spaces: Basal cisterns are patent. No extra-axial fluid collections. The ventricles are symmetric in size and shape. Brain: No intracranial bleeds or masses. There is cerebral volume loss for age, with resultant ventricular and sulcal prominence. There are periventricular and deep white matter chronic small vessel ischemic changes. There is intracranial internal carotid artery atherosclerosis. Skull and face: Calvarium and visualized facial bones appear intact, without suspicious lesions. Sinuses: Visualized sinuses and mastoids are clear. IMPRESSION: No imaging explanation is found for this patient's presenting symptoms. To the limits of this noncontrast study, no findings masses or mass effect can be seen. No acute intracranial process is seen. No significant paranasal sinus disease is seen. Dictated by: Alexander Doherty M.D. on 03/27/2023 at 10:56 Approved by: Alexander Doherty M.D. on 03/27/2023 at 10:57
--- NOTE | 2023-03-27 12:57 | ED_ITS ---
HPI - Recheck/Abnormal Lab/Rx General Chief Complaint: Recheck/Abnormal Lab/Rx Stated Complaint: sent by provider, feeling pressure L side face Time Seen by Provider: 03/27/23 11:28 Source: patient Mode of arrival: Ambulatory History of Present Illness HPI narrative: Patient presents for L sided eye fuzziness and pressure on the L side of her face. Patient recently discharged from the hospital after gbeing diagnosed with new onset a fib. Patient takes metoprolol and eliquis and has been compliant with her medications. Patient mentioned her symptoms off-handed to a nurse who recommended she come in for evaluation. patient wears glasses at baseline. Related Data Home Medications Medication Instructions Recorded Confirmed oxybutynin chloride 5 mg 5 mg PO DAILY Bladder spasms 04/24/21 03/24/23 tablet,extended release 24 hr sertraline 100 mg tablet 150 mg PO BEDTIME Depression 04/24/21 03/24/23 trazodone 50 mg tablet 25 mg PO BEDTIME Insomnia 04/24/21 03/24/23 ascorbic acid (vitamin C) 1,000 mg 1 g PO DAILY Supplement 03/24/23 03/24/23 capsule cholecalciferol (vitamin D3) 25 25 mcg PO DAILY Supplement 03/24/23 03/24/23 mcg (1,000 unit) capsule dicyclomine 20 mg tablet 20 mg PO DAILY abdominal pain 03/24/23 03/24/23 estradiol 0.01% (0.1 mg/gram) 1 g vaginal 2XW Hormone replacement 03/24/23 03/24/23 vaginal cream evening primrose oil-linoleic 1 cap PO DAILY Supplement 03/24/23 03/24/23 acid-gamolenic acid 1,000 mg capsule ([place] Oil) lorazepam 1 mg tablet 0.5 mg PO BID PRN Anxiety 03/24/23 03/24/23 omega-3 fatty acids 1 cap PO DAILY Supplement 03/24/23 03/24/23 vit C-vit L-htvlmr-tckmizzb-omega 1 cap PO DAILY [facility] 03/24/23 03/24/23 3 100 mg-15 unit-2 mg-100 mg capsule Previous Rx's Medication Instructions Recorded apixaban 5 mg tablet 5 mg PO BID 30 days #60 tabs 03/25/23 metoprolol succinate 25 mg 12.5 mg (1/2 x 25 mg) PO DAILY 90 03/25/23 tablet,extended release 24 hr days #45 tabs Allergies Allergy/AdvReac Type Severity Reaction Status Date / Time No Known Drug Allergies Allergy Verified 03/24/23 16:06 Review of Systems Review of Systems Narrative: Negative except as noted above Patient History Medical History (Updated 03/27/23 @ 13:20 by Bell Griffith MD) Anxiety and depression Urine incontinence Depression Ganglion cyst Social History household members: spouse and children Smoking Status: Never smoker alcohol intake: never Smoking Status: Never smoker Substance Use Type: does not use Exam Initial Vital Signs Initial Vital Signs: Vital Signs Temperature 97.5 F L 03/27/23 11:21 Pulse Rate 46 L 03/27/23 11:21 Respiratory Rate 16 03/27/23 11:21 Blood Pressure 147/64 H 03/27/23 11:21 Pulse Oximetry 100 03/27/23 11:21 Oxygen Delivery Method Room Air 03/27/23 11:21 Const: Awake, alert, no acute distress, nontoxic appearing Head: atraumatic, no reproducible tenderness to palpation Eyes: PERRL, EOMI, conjunctiva normal, IOP OD 15 OS 17, visual acuity (per nursing notes), peripheral vision normal ENT: Atraumatic, dentition normal, mucous membranes moist Cardiac: regular rate, regular rhythm RESP: unlabored, clear bilaterally, no wheezing GI: Atraumatic, soft, nontender, nondistended, no rebound, no guarding MSK: Atraumatic, full range of motion, pulses equal Skin: Warm, Dry, intact, no rashes Neuro: AO x3, CN II-XII grossly intact, moves all extremities Psych: affect normal, mood normal, not suicidal, not homicidal Course Course Course Narrative: Well-appearing patient with vague left-sided head/eye pain and the sensation that her vision on the left-hand side is fuzzy. Visual acuity is at patient's baseline. Intra-ocular pressure is normal. CT reviewed, unremarkable. Uncertain etiology of patient's symptoms. Recommended patient follow up with Ophthalmology if she continues to feel fuzziness in her vision. Patient states that she has a primary care doctor's appointment within the week and we will ask for a referral at that time. ED return precautions discussed at bedside. Patient expressed understanding of the plan and is in agreement at this time. All questions answered at the time of discharge. Orders Ordered: Discontinued Medications Proparacaine HCl (Proparacaine 0.5% Ophth Debbie) 1 drops EYE-BOTH NOW ONE Stop: 03/27/23 12:58 Last Admin: 03/27/23 13:00 Dose: 1 1000units Documented By: AMY Vital Signs Vital signs: Vital Signs - 8 hr 03/27/23 11:21 Temperature 97.5 F L Pulse Rate 46 L Respiratory Rate 16 Blood Pressure 147/64 H Pulse Oximetry 100 Oxygen Delivery Method Room Air Discharge Plan Departure Patient Disposition: Home Clinical Impression: Headache Instructions: DI for Headache Activity Restrictions/Additional Instructions: Talk to your primary care doctor about following up with an lead application architect. Prescriptions: No Action oxybutynin chloride 5 mg tablet extended release 24hr 5 mg PO DAILY sertraline 100 mg tablet 150 mg PO BEDTIME trazodone 50 mg tablet 25 mg PO BEDTIME dicyclomine 20 mg tablet 20 mg PO DAILY lorazepam 1 mg tablet 0.5 mg PO BID MDD 1 mg PRN (Reason: Anxiety) estradiol 0.01 % (0.1 mg/gram) Cream 1 g VAGINAL 2XW cholecalciferol (vitamin D3) 25 mcg (1,000 unit) Capsule 25 mcg PO DAILY omega-3 fatty acids Capsule 1 cap PO DAILY [place] Oil 1,000 mg Capsule 1 cap PO DAILY vit C-vit B-nuowrb-tvt-om-3 [id number] kc-doqu-ea-mg Capsule 1 cap PO DAILY ascorbic acid (vitamin C) 1,000 mg Capsule 1 g PO DAILY apixaban 5 mg tablet 5 mg PO BID 30 Days Qty: 60 0RF metoprolol succinate 25 mg tablet extended release 24 hr 12.5 mg PO DAILY 90 Days Qty: 45 0RF Referrals: Delaney Rios PA-C [Primary Care Provider] - Stand Alone Forms: Patient Portal/API
[2023-03-27] MEDS: PROPARACAINE 0.5% OPHTH SOL 1 DROPS EYE-BOTH (13:00)
[2023-03-27 13:24] VITALS: BP 117/57; PULSE 50; RESP 16; O2SAT 100
== END 2023-03-27 13:25 | disposition home or self-care (01) ==
PROVIDERS: Emergency Provider Emergency Medicine; PCP Student in an Organized Health Care Education/Training Program
DX: R51.9 Headache, unspecified (principal)
CPT/HCPCS: 70450; 71045; 99282; 99283

== ENCOUNTER → 2023-05-13 14:32 | Outpatient (CLI) | payer MEDICARE, OTHER, SELFPAY ==
[2023-03-24 22:28] VITALS: BMI 21.2
--- NOTE | 2023-05-13 14:34 | DI.MG.S_ITS ---
BILATERAL DIGITAL SCREENING MAMMOGRAM 3D/2D WITH CAD: 05/13/2023 CLINICAL: Routine screening. Family history of breast cancer. Comparison is made to exams dated: 05/10/2022 mammogram - [facility], 07/06/2021 mammogram, and 06/21/2020 mammogram - [facility]. Both breasts are heterogeneously dense, which may obscure small masses (category c / 51-75% glandular tissue). Current study was also evaluated with a Computer Aided Detection (CAD) system. There is a biopsy clip in the right breast. No significant masses, calcifications, or other findings are seen in either breast. There has been no significant interval change. IMPRESSION: NEGATIVE There is no mammographic evidence of malignancy. A 1 year screening mammogram is recommended. Based on the Tyrer Cuzick model (a risk assessment model) the patient's lifetime risk is 14.7% and her 10 year risk is 9.5%. According to the ACR, ACS, and NCCN guidelines, an annual breast MRI exam along with mammogram is recommended if the patient's lifetime risk is 20% or greater. This exam was interpreted at Station ID: [id number]. NOTE: For mammograms, a report in lay terms will be sent to the patient. Approximately 15% of breast malignancies will not be visualized mammographically. In the management of a palpable breast mass, a negative mammogram must not discourage biopsy of a clinically suspicious lesion. Electronically Signed By: Ronaldo osei/piedad:05/15/2023 11:42:04 letter sent: Normal Exam ACR BI-RADS Category 1: Negative [id number]
== END ==
PROVIDERS: PCP Student in an Organized Health Care Education/Training Program; Referring Provider Student in an Organized Health Care Education/Training Program; Visit Provider Student in an Organized Health Care Education/Training Program
DX: Z12.31 Encounter for screening mammogram for malignant neoplasm of breast (principal); Z80.3 Family history of malignant neoplasm of breast; R92.333 Mammographic heterogeneous density, bilateral breasts
CPT/HCPCS: 77063; 77067

== ENCOUNTER → 2023-07-18 07:36 | Outpatient (CLI) | payer MEDICARE, OTHER, SELFPAY ==
[2023-03-24 22:28] VITALS: BMI 21.2
[2023-07-18 08:19] LABS: Cholesterol 155 mg/dL (140-199); HDL Cholesterol 66 mg/dL (40-60); LDL Cholesterol Calculated 80 mg/dL (<100); Triglycerides 45 mg/dL (35-150)
[2023-07-18 08:51] LABS: Thyroid Stimulating Hormone 1.17 uIU/mL (0.47-4.68)
== END ==
LOC: LAB 07:38
PROVIDERS: PCP Student in an Organized Health Care Education/Training Program; Referring Provider Internal Medicine Cardiovascular Disease; Visit Provider Internal Medicine Cardiovascular Disease
DX: I48.91 Unspecified atrial fibrillation (principal); Z13.29 Encounter for screening for other suspected endocrine disorder
CPT/HCPCS: 36415; 80061; 84439; 84443

== ENCOUNTER → 2023-08-21 11:10 | Outpatient (CLI) | payer MEDICARE, OTHER, SELFPAY ==
[2023-03-24 22:28] VITALS: BMI 21.2
--- NOTE | 2023-08-21 11:12 | DI.CT.S_ITS ---
PROCEDURE: CT CERVICAL SPINE WO CON INDICATIONS: Headache, unspecified; Cervicalgia TECHNIQUE: Noncontrast 3 mm thick sections acquired from the skull base to the T4 level. Sagittal and coronal reformats were then constructed. For radiation dose reduction, the following was used: automated exposure control, adjustment of mA and/or kV according to patient size. COMPARISON: None. FINDINGS: Image quality: Excellent. Bones: Normal bone mineralization. There is straightening cervical lordosis present. Hypertrophic facet joints present throughout the exam associated with grade 1 anterior spondylolisthesis at C2-3 and C6-7. Disc space narrowing and hypertrophic arthropathy C3-4, C4-5 and C5-6. Severe right foraminal stenosis C3-4 and C4-5 Soft tissues: Prevertebral soft tissues are normal in thickness. No paravertebral hematomas. No apical pneumothoraces. IMPRESSION: Multilevel degenerative disc disease and arthropathy results in severe right foraminal stenosis C3-4 and C4-5 as well as degenerative grade 1 anterior spondylolisthesis C2-3 and C6-7 Approved by: Kapil Zuñiga M.D. on 08/21/2023 at 15:32
--- NOTE | 2023-08-21 11:12 | DI.CT.S_ITS ---
PROCEDURE: CT HEAD/BRAIN WO CON INDICATIONS: Headache, unspecified; Cervicalgia TECHNIQUE: Noncontrast 4.5 mm thick angled axial sections acquired from the foramen magnum to the vertex, with coronal and sagittal reformats. For radiation dose reduction, the following was used: automated exposure control, adjustment of mA and/or kV according to patient size. COMPARISON: Merged With [facility], CT, CT HEAD/BRAIN WO CON, 03/27/2023, 11:44. FINDINGS: Image quality: Diagnostic. CSF spaces: Basal cisterns are patent. No extra-axial fluid collections. Ventricles are normal in size and shape. Brain: No midline shift. No intracranial masses or hemorrhage. Riley-white matter interface is normal. Skull and face: Calvarium and visualized facial bones are intact, without suspicious lesions. Sinuses: Visualized sinuses and mastoids are clear. IMPRESSION: Unremarkable CT of the brain. Incidental nasal septal deviation to the left Approved by: Kapil Zuñiga M.D. on 08/21/2023 at 15:49
== END ==
PROVIDERS: PCP Student in an Organized Health Care Education/Training Program; Referring Provider Student in an Organized Health Care Education/Training Program; Visit Provider Student in an Organized Health Care Education/Training Program
DX: R51.9 Headache, unspecified (principal); R42 Dizziness and giddiness; J34.2 Deviated nasal septum; M47.812 Spondylosis without myelopathy or radiculopathy, cervical region; M48.02 Spinal stenosis, cervical region; M43.12 Spondylolisthesis, cervical region; M50.30 Other cervical disc degeneration, unspecified cervical region
CPT/HCPCS: 70450; 72125

== ENCOUNTER → 2023-09-06 08:45 | Outpatient (CLI) | payer MEDICARE, OTHER, SELFPAY ==
[2023-03-24 22:28] VITALS: BMI 21.2
--- NOTE | 2023-09-06 08:46 | DI.NM.S_ITS ---
PROCEDURE: NM KARIME PERF SPECT R&S PHARM Rest and pharmacological stress myocardial perfusion SPECT with gated imaging and ejection fraction RADIOPHARMACEUTICAL: 11.5 mCi Tc-99m tetrafosmin IV at rest and 25.7 mCi Tc-99m tetrafosmin IV at peak effect of pharmacological stress. A 4-noj-vrpjiiyp was performed. INDICATIONS: Unspecified atrial fibrillation TECHNIQUE: Radiopharmaceutical was injected at peak stress test, and also at rest. SPECT images were obtained. SPECT myocardial perfusion images were displayed in short axis, horizontal long axis, and vertical long axis views. Gated images were reviewed using [place] de [place] software. COMPARISON: None. CARDIAC STRESS: A pharmacologic stress test was performed under the supervision of an attending staff, using an infusion of regadenoson 0.4 mg IV. Hemodynamic data: There is normal blood pressure and heart rate response to pharmacologic stress. Symptoms: The patient denied anginal chest pain. EKG: No diagnostic changes of ischemia; no ectopy. FINDINGS: Raw data: There is good myocardial uptake of radiotracer. No significant motion artifacts. Vcyr-sd-fotba ratio is 0.31 (normal is less than 0.38 for tetrafosmin tracer). Left ventricle function: Gated images demonstrate normal left ventricular wall thickening. No segmental wall motion abnormalities. No transient ischemic dilation; TID is 0.93 (normal less than 1.3). Left ventricle resting end diastolic volume is 92 mL. Left ventricle stress ejection fraction is >75%; normal range is above 45%. Myocardial perfusion: There is normal distribution of activity in the right and left ventricular myocardium. No fixed or reversible perfusion defects. IMPRESSION: Low risk study. No evidence of pharmacologic induced ischemia or scar. Normal LV size with hyperdynamic function. Dictated by: Chanelle Guo D.O. on 09/06/2023 at 16:58 Approved by: Chanelle Guo D.O. on 09/06/2023 at 17:00
--- NOTE | 2023-09-06 08:46 | DI.ECHO.S_ITS ---
[facility] : : [address] : : [place] : : [address] : : Phone: [phone] Echocardiogram Report + + :Name: AMELIA RAZA Study Date: 09/06/2023 Height: 67 in : :[facility] ReadingLocation: Weight: 140 lb : : Gender: Female BSA: 1.7 m2 : :: 1950 Age: 73 yrs BP: 117/73 mmHg: :Reason For Study: ATRIAL FIBRILLATION : :Ordering Physician: ROBER, : :CHANELLE Garcia Performed By: Anshu Peterson : :Referring: CHANELLE GUO : + + Interpretation Summary The patient was in sinus bradycardia with heart rates between 42-48 bpm during the exam. The ejection fraction is estimated to be 55-60%. The left atrium is mildly dilated. The right ventricle is mildly dilated. The right ventricular systolic function is normal. There is mild mitral regurgitation. There is mild aortic regurgitation. Pulmonary artery pressures cannot be estimated because of the lack of a measurable TR jet velocity but the IVC suggests a CVP of around 8 mmHg. Compared to the prior study dated 03/25/2023, no significant change. Procedure: A two-dimensional transthoracic echocardiogram with color flow and Doppler was performed. The study quality was technically adequate. Comparison is made with the echocardiogram of 03/25/2023. The patient was in sinus bradycardia with heart rates between 42-48 bpm during the exam. Left Ventricle: The left ventricle is normal in size and wall thickness. The ejection fraction is estimated to be 55-60%. Diastolic function could not be accurately assessed due to contradictory data. Right Ventricle: The right ventricle is mildly dilated. The right ventricular systolic function is normal. Atria: The left atrium is mildly dilated. Borderline right atrial enlargement. The interatrial septum grossly appears intact with no obvious evidence for an atrial septal defect. Mitral Valve: The mitral valve is normal. There is no mitral valve stenosis. There is mild mitral regurgitation. Aortic Valve: The aortic valve opens well. There is no aortic valve stenosis. There is mild aortic regurgitation. Tricuspid Valve: The tricuspid valve is normal in structure and function. There is no tricuspid stenosis. There is trace tricuspid regurgitation. Pulmonary artery pressures cannot be estimated because of the lack of a measurable TR jet velocity but the IVC suggests a CVP of around 8 mmHg. Pulmonic Valve: The pulmonic valve is not well visualized. There is no pulmonic valvular stenosis. There is no pulmonic valvular regurgitation. Great Vessels: The aortic root is normal size. The dimensions of the ascending aorta are normal. The IVC is dilated (diameter is greater than 2.1 cm) yet it collapses greater than 50% with a sniff. This suggests a right atrial pressure of 8 mm Hg. Pericardium/ Pleura There is no pericardial effusion. There is no pleural effusion. MMode/2D Measurements & Calculations LVIDd: 4.5 cm LVOT diam: 2.1 cm LVIDs: 3.2 cm Ao root diam: 3.4 cm FS: 29.2 % asc Aorta Diam: 2.9 cm IVSd: 0.96 cm Ao Arch Diam (Prox Trans): 2.8 cm LVPWd: 0.95 cm LV maher. diameter/BSA (cm/m^2): 2.6 LV sys. diameter/BSA (cm/m^2): 1.8 LA A2 area: 19.3 cm2 RA long axis: 5.0 cm LA A4 area: 23.5 cm2 RA area: 16.7 cm2 LA length (vol): 6.4 cm RA vol: 47.8 ml LA vol: 60.3 ml RA : 27.5 ml/m2 LA vol index: 34.7 ml/m2 IVC diam: 2.8 cm RVD1 (basal): 3.4 cm RVD2 (mid): 3.1 cm TAPSE: 3.0 cm Doppler Measurements & Calculations Ao V2 max: 146.4 cm/sec LVOT Max Amaury: 106.5 cm/sec Ao V2 mean: 85.3 cm/sec LV V1 max P.5 mmHg Ao max P.6 mmHg LV V1 VTI: 26.0 cm Ao mean P.4 mmHg PAULINA(I,D): 2.6 cm2 Ao V2 VTI: 34.7 cm PAULINA(V,D): 2.5 cm2 sev ratio: 0.75 PAULINA indexed to BSA (cm^2/m^2): 1.5 MV E max amaury: 57.1 cm/sec TR max amaury: 201.4 cm/sec MV A max amaury: 54.9 cm/sec TR max P.2 mmHg MV E/A: 1.0 PA V2 max: 82.0 cm/sec Med Peak E' Amaury: 8.8 cm/sec PA V2 mean: 53.7 cm/sec E/E' med: 6.5 PA mean P.3 mmHg Lat Peak E' Amaury: 9.3 cm/sec PA pr(Accel): 13.9 mmHg E/E' lat: 6.2 E/e' average: 6.3 MV dec time: 0.17 sec SV(OT): 89.2 ml Reading Physician:05:50 PM
== END ==
LOC: NUCM 08:45
PROVIDERS: PCP Student in an Organized Health Care Education/Training Program; Referring Provider Internal Medicine Cardiovascular Disease; Visit Provider Internal Medicine Cardiovascular Disease
DX: I08.0 Rheumatic disorders of both mitral and aortic valves (principal); I48.91 Unspecified atrial fibrillation
CPT/HCPCS: 78452; 93017; 93306; A9502; J2785

== ENCOUNTER → 2023-11-05 07:34 | Outpatient (CLI) | payer MEDICARE, OTHER, SELFPAY ==
[2023-03-24 22:28] VITALS: BMI 21.2
--- NOTE | 2023-11-05 07:38 | DI.RAD.S_ITS ---
PROCEDURE: XR SHOULDER RT MIN 2V INDICATIONS: Pain in right shoulder TECHNIQUE: 3 views of the shoulder were acquired. COMPARISON: None. FINDINGS: Bones: No fractures or dislocations. No suspicious bony lesions. Visualized ribs appear intact. Mild acromioclavicular moderate glenohumeral arthritic change. Soft tissues: No suspicious soft tissue calcifications. IMPRESSION: Acromioclavicular and glenohumeral arthritic change. Dictated by: Tamika Banks M.D. on 11/05/2023 at 12:42 Approved by: Tamika Banks M.D. on 11/05/2023 at 12:42
== END ==
PROVIDERS: PCP Student in an Organized Health Care Education/Training Program; Referring Provider Internal Medicine Cardiovascular Disease; Visit Provider Internal Medicine Cardiovascular Disease
DX: M25.511 Pain in right shoulder (principal)
CPT/HCPCS: 73030

== ENCOUNTER → 2023-11-08 07:45 | Outpatient (CLI) | payer MEDICARE, OTHER, SELFPAY ==
[2023-03-24 22:28] VITALS: BMI 21.2
--- NOTE | 2023-11-08 07:46 | DI.NM.S_ITS ---
PROCEDURE: NM EXERCISE TREADMILL NON NUC COMPARISON: None. INDICATIONS: Bradycardia, unspecified FINDINGS: Total exercise time was 6 minutes and 36 seconds. Test was terminated secondary to fatigue. No chest pains voiced. Maximum heart rate obtained is under 45 bpm which is 97% of max braided heart rate. Maximum blood pressure was 170/80 [place] [address]. JOY of 0%. 7.[address] depressions were noted in the inferior lateral leads starting at 5 minutes [address] depression resolved at 1 minute into recovery. Rate related intraventricular conduction block was noted. This persisted into recovery. Paroxysmal atrial fibrillation with rapid ventricular response also developed in recovery with associated repolarization abnormalities with downward sloping ST depression. IMPRESSION: 1. Positive exercise treadmill stress test in terms of ischemia. 2. Average exercise tolerance. 3. Rate related intraventricular conduction block. 4. Paroxysmal atrial fibrillation noted. Dictated by: Fredi Best M.D. on 11/08/2023 at 17:31 Approved by: Fredi Best M.D. on 11/08/2023 at 17:38
== END ==
PROVIDERS: PCP Student in an Organized Health Care Education/Training Program; Referring Provider Internal Medicine Cardiovascular Disease; Visit Provider Internal Medicine Cardiovascular Disease
DX: I48.0 Paroxysmal atrial fibrillation (principal); I45.4 Nonspecific intraventricular block; R00.1 Bradycardia, unspecified
CPT/HCPCS: 93017

== ENCOUNTER → 2024-01-16 07:15 | Outpatient (CLI) | payer MEDICARE, OTHER, SELFPAY ==
[2023-03-24 22:28] VITALS: BMI 21.2
[2024-01-16 08:16] LABS: Add Manual Diff / Slide Review NO; Basophils Absolute Auto 0 /uL (0-100); Basophils Percent Auto 0.4 % (0-2); Eosinophils Absolute Auto 100 /uL (0-450); Eosinophils Percent Auto 1.6 % (2-4); Hematocrit 36.8 % (36-46); Lymphocytes Absolute Auto 1600 /uL (1100-4500); Lymphocytes Percent Auto 35.9 % (25-40); Mean Corpuscular HGB Conc 35.4 % (30-36); Mean Corpuscular Hemoglobin 30.5 PG (26-34); Mean Corpuscular Volume 86.2 fL (80-100); Monocytes Absolute Auto 300 /uL (0-900); Monocytes Percent Auto 6.8 % (3-14); Neutrophils Absolute Auto 2400 /uL (1500-7000); Neutrophils Percent Auto 55.3 % (50-75); Platelet Count 202 X10^3/uL (150-400); Red Blood Cell Count 4.26 X10^6/uL (4.0-5.2); Red Cell Distribution Width 13.2 % (11.6-14.8); White Blood Cell Count 4.4 X10^3/uL (4.5-11.0)
[2024-01-16 08:36] LABS: Blood Urea Nitrogen 15 mg/dL (7-17); Calcium 9.6 mg/dL (8.4-10.2); Carbon Dioxide 29 mmol/L (22-32); Chloride 99 mmol/L (98-107); Estimated Glomerular Filt Rate > 60 mL/min (>60); Glucose 75 mg/dL (80-110); HEMOLYSIS < 15 (0-50); Potassium 4.1 mmol/L (3.4-5.1); Sodium 133 mmol/L (137-145)
== END ==
PROVIDERS: PCP Student in an Organized Health Care Education/Training Program; Referring Provider Orthopaedic Surgery Foot and Ankle Surgery; Visit Provider Orthopaedic Surgery Foot and Ankle Surgery
DX: Z01.812 Encounter for preprocedural laboratory examination (principal); R73.9 Hyperglycemia, unspecified
CPT/HCPCS: 36415; 80048; 83036; 85025

== ENCOUNTER → 2024-05-15 13:07 | Outpatient (CLI) | payer MEDICARE, OTHER, SELFPAY ==
[2023-03-24 22:28] VITALS: BMI 21.2
--- NOTE | 2024-05-15 13:08 | DI.MG.S_ITS ---
BILATERAL DIGITAL SCREENING MAMMOGRAM 3D/2D WITH CAD: 05/15/2024 CLINICAL: Routine screening. Family history of breast cancer. Comparison is made to exams dated: 05/13/2023 mammogram, 05/10/2022 mammogram - [facility], and 07/06/2021 mammogram - [facility]. The breasts are heterogeneously dense, which may obscure small masses (category c / 51-75% glandular tissue). Current study was also evaluated with a Computer Aided Detection (CAD) system. There is a biopsy clip in the right breast. No significant masses, calcifications, or other findings are seen in either breast. There has been no significant interval change. IMPRESSION: NEGATIVE There is no mammographic evidence of malignancy. A 1 year screening mammogram is recommended. Based on the Tyrer Cuzick model (a risk assessment model) the patient's lifetime risk is 14.0% and her 10 year risk is 9.7%. According to the ACR, ACS, and NCCN guidelines, an annual breast MRI exam along with mammogram is recommended if the patient's lifetime risk is 20% or greater. This exam was interpreted at Station ID: [id number]. NOTE: For mammograms, a report in lay terms will be sent to the patient. Approximately 15% of breast malignancies will not be visualized mammographically. In the management of a palpable breast mass, a negative mammogram must not discourage biopsy of a clinically suspicious lesion. Electronically Signed By: Mario du/piedad:05/15/2024 15:48:35 letter sent: Normal Exam ACR BI-RADS Category 1: Negative
== END ==
PROVIDERS: PCP Family Medicine; Referring Provider Family Medicine; Visit Provider Family Medicine
DX: Z12.31 Encounter for screening mammogram for malignant neoplasm of breast (principal); R92.333 Mammographic heterogeneous density, bilateral breasts; Z80.3 Family history of malignant neoplasm of breast
CPT/HCPCS: 77063; 77067

== ENCOUNTER 2024-07-16 20:38 | Emergency (ER) | payer MEDICARE, OTHER, SELFPAY ==
[2023-03-24 22:28] VITALS: BMI 21.2
[2024-07-16 20:41] VITALS: BP 149/67; PULSE 62; RESP 14; TEMP 37.1; O2SAT 99
--- NOTE | 2024-07-16 20:46 | EKG_ITS ---
[facility] [id number] [place] [id number] Test Date: 2024-07-16 Pat Name: Ashley Hopper Department: Room: Gender: Female [employer] Handler: OPAL HARRELL : 1950 Requested By: Order Number: [id number] Reading MD: Alphonse Hamilton MD Measurements Intervals [place] Rate: 57 P: 67 MA: 156 QRS: 84 QRSD: 90 T: 69 QT: 418 QTc: 406 Interpretive Statements Sinus bradycardia Cannot rule out Anterior infarct , age undetermined Electronically Signed On 07-17-2024 6:42:34 PDT by Alphonse Hamilton MD
--- NOTE | 2024-07-16 20:50 | DI.RAD.S_ITS ---
PROCEDURE: XR CHEST 1V INDICATIONS: chest pain TECHNIQUE: One view of the chest was acquired. COMPARISON: [facility], CR, XR CHEST 1V, 03/27/2023, 11:12. FINDINGS: Surgical changes and devices: None. Lungs and pleura: Lungs are clear. No pleural effusions or pneumothorax. Mediastinum: Mediastinal contours appear normal. Heart size is normal. Bones and chest wall: No suspicious bony lesions. Overlying soft tissues appear unremarkable. IMPRESSION: No acute cardiopulmonary abnormality is seen. Approved by: Genet Huff M.D.,Ph.D. on 07/16/2024 at 21:45
[2024-07-16 21:03] LABS: Add Manual Diff / Slide Review NO; Basophils Absolute Auto 100 /uL (0-100); Basophils Percent Auto 0.9 % (0-2); Eosinophils Absolute Auto 100 /uL (0-450); Eosinophils Percent Auto 0.7 % (2-4); Lymphocytes Absolute Auto 2600 /uL (1100-4500); Lymphocytes Percent Auto 27.7 % (25-40); Mean Corpuscular HGB Conc 34.4 % (30-36); Mean Corpuscular Hemoglobin 29.8 PG (26-34); Mean Corpuscular Volume 86.6 fL (80-100); Monocytes Absolute Auto 700 /uL (0-900); Monocytes Percent Auto 7.7 % (3-14); Neutrophils Absolute Auto 5800 /uL (1500-7000); Platelet Count 297 X10^3/uL (150-400); Red Blood Cell Count 4.04 X10^6/uL (4.0-5.2); Red Cell Distribution Width 15.9 % (11.6-14.8); White Blood Cell Count 9.2 X10^3/uL (4.5-11.0)
[2024-07-16] MEDS: ASPIRIN 81 MG CHEW TAB 324 MG PO (21:06)
[2024-07-16 21:10] LABS: Prothrombin Time 11.3 SECONDS (9.4-12.5)
[2024-07-16 21:12] LABS: PTT Partial Thromboplastin Tim 29 SECONDS (25.1-36.5)
[2024-07-16 21:15] LABS: Alanine Aminotransferase 30 IU/L (<35); Albumin 4.2 g/dL (3.5-5.0); Albumin Globulin Ratio 1.4 (1.0-2.8); Alkaline Phosphatase 88 U/L (38-126); Aspartate Aminotransferase 34 IU/L (14-36); BUN Creatinine Ratio 37.5 (6-22); Bilirubin Total 0.4 mg/dL (0.2-1.3); Blood Urea Nitrogen 18 mg/dL (7-17); Calcium 9.7 mg/dL (8.4-10.2); Carbon Dioxide 29 mmol/L (22-32); Chloride 97 mmol/L (98-107); Creatine Kinase 30 U/L (30-135); Estimated Glomerular Filt Rate > 60 mL/min (>60); Globulin 2.9 g/dL (1.7-4.1); Glucose 105 mg/dL (80-110); HEMOLYSIS < 15 (0-50); Lipase 190 U/L (23-300); Magnesium 2.1 mg/dL (1.6-2.3); Sodium 133 mmol/L (137-145); Total Protein 7.1 g/dL (6.3-8.2)
[2024-07-16 21:26] LABS: NT-proBNP (BNP-Adult 18+) 222 pg/mL (<125); Troponin I < 0.012 ng/mL (0.01-0.034)
[2024-07-16 22:47] VITALS: PULSE 57; O2SAT 99
[2024-07-16 22:48] VITALS: BP 101/62; PULSE 54; RESP 19; O2SAT 99
[2024-07-16 23:00] VITALS: BP 106/57; PULSE 54; RESP 22; O2SAT 98
[2024-07-16 23:30] VITALS: BP 115/58; PULSE 55; RESP 21; O2SAT 98
--- NOTE | 2024-07-16 23:39 | ED.CHESTPAIN ---
HPI - Chest Pain General Chief Complaint: Chest Pain Stated Complaint: afib, tightness in chest, nausea taking px meds Time Seen by Provider: 07/16/24 23:39 Source: patient Mode of arrival: Ambulatory History of Present Illness HPI narrative: 74-year-old female with a past medical history paroxysmal AFib on Eliquis, anxiety, depression, comes into the ED from home for evaluation of chest tightness She states that she has been taking medications for constipation states that her last bowel movement was this morning. States that she does have a history of anxiety/panic attacks so took half a lorazepam but feels like her symptoms remain therefore decided come into the ED for further evaluation treatment. She denies any other symptoms such as headache visual disturbances fever chills or any other GI/ symptoms at this time. She states at this time she is not having any of her symptoms, she states that she does follow with Cardiology Dr. Angel. Has an appointment in the next month or 2. States that she has had a recent echo and stress test which was normal. Related Data Home Medications Medication Instructions Recorded Confirmed oxybutynin chloride 5 mg 5 mg PO DAILY Bladder spasms 04/24/21 03/24/23 tablet,extended release 24 hr sertraline 100 mg tablet 150 mg PO BEDTIME Depression 04/24/21 03/24/23 trazodone 50 mg tablet 25 mg PO BEDTIME Insomnia 04/24/21 03/24/23 ascorbic acid (vitamin C) 1,000 mg 1 g PO DAILY Supplement 03/24/23 03/24/23 capsule cholecalciferol (vitamin D3) 25 25 mcg PO DAILY Supplement 03/24/23 03/24/23 mcg (1,000 unit) capsule dicyclomine 20 mg tablet 20 mg PO DAILY abdominal pain 03/24/23 03/24/23 estradiol 0.01% (0.1 mg/gram) 1 g vaginal 2XW Hormone replacement 03/24/23 03/24/23 vaginal cream evening primrose oil-linoleic 1 cap PO DAILY Supplement 03/24/23 03/24/23 acid-gamolenic acid 1,000 mg capsule (Denniston Oil) lorazepam 1 mg tablet 0.5 mg PO BID PRN Anxiety 03/24/23 03/24/23 omega-3 fatty acids 1 cap PO DAILY Supplement 03/24/23 03/24/23 vit C-vit J-kufjpz-xgfagcgk-omega 1 cap PO DAILY [facility] 03/24/23 03/24/23 3 100 mg-15 unit-2 mg-100 mg capsule Allergies Allergy/AdvReac Type Severity Reaction Status Date / Time No Known Drug Allergies Allergy Verified 03/24/23 16:06 Review of Systems Review of Systems Narrative: General: Denies fever, chills, weight loss HEENT: Denies headache, eye drainage, eye irritation, head trauma, sore throat, voice change Cardiovascular: Positive chest pain/tightness, palpitations, Respiratory: Denies any shortness of breath, cough, wheeze, stridor GI/: Denies any abdominal pain, nausea, vomiting, diarrhea, bright red blood per rectum, melanotic stools, urinary frequency, urinary retention, dysuria, hematuria MSK: Denies any joint pain, muscle pains, swelling Skin: Denies any rashes, lesions, discoloration Neuro: Denies any headache, lightheadedness, dizziness, fainting, weakness Psych: Denies SI/HI Patient History Medical History (Updated 07/16/24 @ 23:52 by Roland Murguia DO) Anxiety and depression Urine incontinence Depression Ganglion cyst Social History household members: spouse and children Smoking Status: Never smoker alcohol intake: never Smoking Status: Never smoker Exam Narrative Exam Narrative: General: Cooperative, comfortable, well-developed, not in acute distress HEENT: Normocephalic, atraumatic, PERRLA, normal sclera, eyelids normal, Neck: Active full range of motion, atraumatic Chest: Normal to inspection, negative crepitus, no overlying erythema ecchymosis Respiratory: Normal respiratory effort, not in acute respiratory distress, clear to auscultation bilaterally negative cough, wheeze, tachypnea, rhonchi, rales Cardiology: Regular rate rhythm negative gallop, murmur, rubs GI/: Normal to inspection, soft, nonrigid, no tenderness to palpation, exam deferred MSK: Full range of active range of motion of all 4 extremities, atraumatic Skin: No rashes lesions noted Neuro: Alert awake oriented x3, moves all 4 extremities spontaneously, cranial nerves intact, able to answer all questions appropriately follows commands appropriately Psych: Cooperative, negative suicidal or homicidal ideations Initial Vital Signs Initial Vital Signs: Vital Signs Temperature 98.7 F 07/16/24 20:41 Pulse Rate 62 07/16/24 20:41 Respiratory Rate 14 07/16/24 20:41 Blood Pressure 149/67 H 07/16/24 20:41 Pulse Oximetry 99 07/16/24 20:41 Oxygen Delivery Method Room Air 07/16/24 20:41 Course Orders Ordered: ED Orders 07/16/24 23:16 Trop I [Troponin I] Stat Discontinued Medications Aspirin (Aspirin 81 Mg Chew Tab) 324 mg PO NOW ONE Stop: 07/16/24 20:51 Last Admin: 07/16/24 21:06 Dose: 324 mg Documented By: RUDY Vital Signs Vital signs: Vital Signs - 8 hr 07/16/24 22:47 07/16/24 22:48 07/16/24 22:48 Pulse Rate 57 L 54 L Respiratory Rate 19 Blood Pressure 101/62 Pulse Oximetry 99 99 07/16/24 23:00 07/16/24 23:00 07/16/24 23:30 Pulse Rate 54 L 55 L Respiratory Rate 22 21 Blood Pressure 106/57 L Pulse Oximetry 98 98 07/16/24 23:30 Pulse Rate Respiratory Rate Blood Pressure 115/58 L Pulse Oximetry MDM - Chest Pain Differential Diagnosis Differential diagnosis: Likely stable angina, st elevation myocardial infarction, costochondritis, chest pain and other (ACS, AFib, pneumonia, electrolyte abnormality) Lab Data 07/16/24 20:55 07/16/24 20:55 Labs: Lab Results 07/16/24 07/16/24 Range/Units 20:55 23:16 WBC 9.2 (4.5-11.0) X10^3/uL RBC 4.04 (4.0-5.2) X10^6/uL Hgb 12.0 (12.0-16.0) g/dL Hct 35.0 L (36-46) % MCV 86.6 (80-100) fL MCH 29.8 (26-34) PG MCHC 34.4 (30-36) % RDW 15.9 H (11.6-14.8) % Plt Count 297 (150-400) X10^3/uL Neut % (Auto) 63.0 (50-75) % Lymph % (Auto) 27.7 (25-40) % Beaver % (Auto) 7.7 (3-14) % Eos % (Auto) 0.7 L (2-4) % Baso % (Auto) 0.9 (0-2) % Neut # (Auto) 5800 (0214-8285) /uL Lymph # (Auto) 2600 (1781-4976) /uL Beaver # (Auto) 700 (0-900) /uL Eos # (Auto) 100 (0-450) /uL Baso # (Auto) 100 (0-100) /uL PT 11.3 (9.4-12.5) SECONDS INR 1.0 (0.9-1.3) APTT 29 (25.1-36.5) SECONDS Sodium 133 L (137-145) mmol/L Potassium 4.0 (3.4-5.1) mmol/L Chloride 97 L (98-107) mmol/L Carbon Dioxide 29 (22-32) mmol/L BUN 18 H (7-17) mg/dL Creatinine 0.48 L (0.52-1.04) mg/dL Estimated GFR > 60 (>60) mL/min BUN/Creatinine Ratio 37.5 H (6-22) Glucose 105 (80-110) mg/dL Calcium 9.7 (8.4-10.2) mg/dL Magnesium 2.1 (1.6-2.3) mg/dL Total Bilirubin 0.4 (0.2-1.3) mg/dL AST 34 (14-36) IU/L ALT 30 (<35) IU/L Alkaline Phosphatase 88 (38-126) U/L Total Creatine Kinase 30 (30-135) U/L Troponin I < 0.012 < 0.012 (0.01-0.034) ng/mL NT-Pro-B Natriuret Pep 222 H (<125) pg/mL Total Protein 7.1 (6.3-8.2) g/dL Albumin 4.2 (3.5-5.0) g/dL Globulin 2.9 (1.7-4.1) g/dL Albumin/Globulin Ratio 1.4 (1.0-2.8) Lipase 190 (23-300) U/L Imaging Data Chest x-ray: Radiologist's Impression: [address] [place] [address] XRay Report Signed Patient: Ashley Hopper MR#: [id number] : 1950 Acct:[id number] Age/Sex: 74 / F Date of Service: 07/16/24 Loc: ED Accession Number: [id number] Procedure: XR chest 1V Ordering Provider: Roland Murguia D.O. PROCEDURE: XR CHEST 1V INDICATIONS: chest pain TECHNIQUE: One view of the chest was acquired. COMPARISON: [facility], , XR CHEST 1V, 03/27/2023, 11:12. FINDINGS: Surgical changes and devices: None. Lungs and pleura: Lungs are clear. No pleural effusions or pneumothorax. Mediastinum: Mediastinal contours appear normal. Heart size is normal. Bones and chest wall: No suspicious bony lesions. Overlying soft tissues appear unremarkable. IMPRESSION: No acute cardiopulmonary abnormality is seen. ECG Data Interpretation: EKG interpreted by ED physician sinus bradycardia at 57 beats per minute, QTC 406, normal axis nonspecific ST changes no STEMI MDM Narrative Medical decision making narrative: Patient is a 74-year-old female with a past medical history paroxysmal AFib on Eliquis, anxiety depression presenting in the emergency department for a chest tightness. She states that she is been taking medications for constipation given the fact that she recently had a total knee replacement, she states that this has caused some mild discomfort to her abdomen but has had normal bowel movements. She states that she does have a history of anxiety panic attacks and is not sure whether or not her symptoms are secondary to this or AFib. She does follow up with Dr. Guo of cardiology does have a follow up appointment with her in the next month or so. Here patient not in AFib, EKG bradycardic without ischemic changes. Patient had troponin negative x2, chest x-ray without any acute cardiopulmonary abnormalities. At time of evaluation she was not having any chest pain or shortness of breath. Heart score 3. Patient was instructed to follow up with her speech lang path therapist and primary care doctor in outpatient setting she did state that she had a recent stress test and echo, she was given strict return precautions she verbalized understanding of this and agrees to being discharged home with outpatient follow up Discharge Plan Departure Patient Disposition: Home Clinical Impression: Chest pain Instructions: DI for Chest Pain Activity Restrictions/Additional Instructions: Please follow up with your speech lang path therapist Please read the discharge instructions sheet carefully and bring all papers to all doctor follow-up visits, as it may contain information that your doctor may want to see. Disease processes change and evolve, if your symptoms worsen or if you develop any new symptoms that are concerning to you please return for evaluation. Your evaluation today does not show any evidence of any life-threatening/serious illnesses requiring admission to the hospital or surgery. Please follow-up with your doctor for re-evaluation in approximately 1 day. Seek immediate medical attention for any worrisome symptoms. *If you do not have a primary care provider please contact the [facility] Resource line at [phone]. They will ask some questions about your medical history and help get you set up with a doctor in the community. Prescriptions: No Action oxybutynin chloride 5 mg tablet extended release 24hr 5 mg PO DAILY sertraline 100 mg tablet 150 mg PO BEDTIME trazodone 50 mg tablet 25 mg PO BEDTIME dicyclomine 20 mg tablet 20 mg PO DAILY lorazepam 1 mg tablet 0.5 mg PO BID MDD 1 mg PRN (Reason: Anxiety) estradiol 0.01 % (0.1 mg/gram) Cream 1 g VAGINAL 2XW cholecalciferol (vitamin D3) 25 mcg (1,000 unit) Capsule 25 mcg PO DAILY omega-3 fatty acids Capsule 1 cap PO DAILY Denniston Oil 1,000 mg Capsule 1 cap PO DAILY vit C-vit F-nhckic-rxs-om-3 [id number] pj-ietw-vq-mg Capsule 1 cap PO DAILY ascorbic acid (vitamin C) 1,000 mg Capsule 1 g PO DAILY Referrals: Junior Hagan MD [Primary Care Provider] - Stand Alone Forms: Patient Portal/API/Survey
[2024-07-16 23:44] LABS: Troponin I < 0.012 ng/mL (0.01-0.034)
== END 2024-07-17 00:07 | disposition home or self-care (01) ==
PROVIDERS: Emergency Provider Student in an Organized Health Care Education/Training Program; PCP Family Medicine
DX: R07.9 Chest pain, unspecified (principal); I48.0 Paroxysmal atrial fibrillation; Z79.01 Long term (current) use of anticoagulants
CPT/HCPCS: 71045; 80053; 82550; 83690; 83735; 83880; 84484; 85025; 85610; 85730; 93005; 99283; 99284

== ENCOUNTER 2024-09-02 23:43 | Emergency (ER) | payer MEDICARE, OTHER, SELFPAY ==
[2023-03-24 22:28] VITALS: BMI 21.2
[2024-09-02 23:54] VITALS: BP 115/56; PULSE 57; RESP 16; TEMP 36.1; O2SAT 100
--- NOTE | 2024-09-03 00:25 | ED_ITS ---
HPI - Recheck/Abnormal Lab/Rx General Chief Complaint: Recheck/Abnormal Lab/Rx Stated Complaint: blood work/dr said go to er Time Seen by Provider: 09/03/24 00:25 Source: patient Mode of arrival: Ambulatory History of Present Illness HPI narrative: 74-year-old female with abdomen and back pain, had outpatient blood draw earlier today showing lipase elevation. Here for possible diagnostic imaging. No nausea or vomiting. No changes in medication, denies alcohol use. No known pancreas problems. Related Data Home Medications Medication Instructions Recorded Confirmed oxybutynin chloride 5 mg 5 mg PO DAILY Bladder spasms 04/24/21 03/24/23 tablet,extended release 24 hr sertraline 100 mg tablet 150 mg PO BEDTIME Depression 04/24/21 03/24/23 trazodone 50 mg tablet 25 mg PO BEDTIME Insomnia 04/24/21 03/24/23 ascorbic acid (vitamin C) 1,000 mg 1 g PO DAILY Supplement 03/24/23 03/24/23 capsule cholecalciferol (vitamin D3) 25 25 mcg PO DAILY Supplement 03/24/23 03/24/23 mcg (1,000 unit) capsule dicyclomine 20 mg tablet 20 mg PO DAILY abdominal pain 03/24/23 03/24/23 estradiol 0.01% (0.1 mg/gram) 1 g vaginal 2XW Hormone replacement 03/24/23 03/24/23 vaginal cream evening primrose oil-linoleic 1 cap PO DAILY Supplement 03/24/23 03/24/23 acid-gamolenic acid 1,000 mg capsule ([place] Oil) lorazepam 1 mg tablet 0.5 mg PO BID PRN Anxiety 03/24/23 03/24/23 omega-3 fatty acids 1 cap PO DAILY Supplement 03/24/23 03/24/23 vit C-vit A-cezkrc-jnxuocaq-omega 1 cap PO DAILY [facility] 03/24/23 03/24/23 3 100 mg-15 unit-2 mg-100 mg capsule Previous Rx's Medication Instructions Recorded sodium,potassium,mag sulfates 17.5 See Rx Instructions PO .COMPLEX 08/31/24 gram-3.13 gram-1.6 gram oral soln #354 mL (Suprep Bowel Prep Kit) Allergies Allergy/AdvReac Type Severity Reaction Status Date / Time No Known Drug Allergies Allergy Verified 03/24/23 16:06 Patient History Medical History (Updated 09/03/24 @ 03:05 by Chivo Burgess MD) Anxiety and depression Urine incontinence Depression Ganglion cyst Social History household members: spouse and children alcohol intake: never Exam Narrative Exam Narrative: GENERAL: Well-developed patient, in mild distress. HEAD: Atraumatic. Normocephalic. EYES: Pupils equal round and reactive. Extraocular motions intact. No scleral icterus. No injection or drainage. ENT: Nose without bleeding, purulent drainage. Throat without erythema, tonsillar hypertrophy or exudate. Airway patent. NECK: Trachea midline. Non tender CARDIOVASCULAR: Regular rate and rhythm without murmurs, gallops, or rubs. RESPIRATORY: Clear to auscultation. Breath sounds equal bilaterally. No wheezes, rales, or rhonchi. GASTROINTESTINAL: Abdomen soft, non-tender, nondistended. EXTREMITIES: No edema or joint tenderness. BACK: Nontender without deformity or crepitance. No flank tenderness. NEURO: AOx3. Motor functions grossly nonfocal SKIN: No rash or erythema of visible areas Initial Vital Signs Initial Vital Signs: Vital Signs Temperature 96.9 F L 09/02/24 23:54 Pulse Rate 57 L 09/02/24 23:54 Respiratory Rate 16 09/02/24 23:54 Blood Pressure 115/56 L 09/02/24 23:54 Pulse Oximetry 100 09/02/24 23:54 Oxygen Delivery Method Room Air 09/02/24 23:54 Course Orders Ordered: ED Orders 09/03/24 00:53 Complete Blood Count AUTO DIFF Stat Comprehensive Metabolic Panel Stat Lipase Stat 09/03/24 01:31 Urine Microscopic Stat 09/03/24 01:50 CT abdomen pelvis w con Stat Vital Signs Vital signs: Vital Signs - 8 hr 09/02/24 23:54 09/03/24 01:29 09/03/24 01:29 Temperature 96.9 F L Pulse Rate 57 L 52 L Respiratory Rate 16 Blood Pressure 115/56 L 140/66 Pulse Oximetry 100 99 Oxygen Delivery Method Room Air 09/03/24 01:30 09/03/24 01:30 09/03/24 03:00 Temperature 98.1 F Pulse Rate 52 L 52 L Respiratory Rate 13 20 Blood Pressure 138/65 143/63 H Pulse Oximetry 100 100 Oxygen Delivery Method Room Air MDM - Recheck/Abnormal Lab/Rx Lab Data Attestation: I reviewed the patient's lab results. Lab results narrative: White blood cell count 5400, hemoglobin 11.7, platelets adequate. Serum glucose 107. BUN 21 with creatinine 0.53. Serum CO2 25. Sodium 133 slight decreased, potassium 3.9 normal. Liver functions normal. Lipase 675 elevated. Urinalysis negative. 09/03/24 00:53 09/03/24 00:53 Labs: Lab Results 09/03/24 09/03/24 Range/Units 00:53 01:31 WBC 5.4 (4.5-11.0) X10^3/uL RBC 3.95 L (4.0-5.2) X10^6/uL Hgb 11.7 L (12.0-16.0) g/dL Hct 33.2 L (36-46) % MCV 84.0 (80-100) fL MCH 29.5 (26-34) PG MCHC 35.1 (30-36) % RDW 14.2 (11.6-14.8) % Plt Count 204 (150-400) X10^3/uL Neut % (Auto) 60.4 (50-75) % Lymph % (Auto) 28.6 (25-40) % [place] % (Auto) 9.1 (3-14) % Eos % (Auto) 1.4 L (2-4) % Baso % (Auto) 0.5 (0-2) % Neut # (Auto) 3300 (7328-8934) /uL Lymph # (Auto) 1600 (2907-0089) /uL [place] # (Auto) 500 (0-900) /uL Eos # (Auto) 100 (0-450) /uL Baso # (Auto) 0 (0-100) /uL Sodium 133 L (137-145) mmol/L Potassium 3.9 (3.4-5.1) mmol/L Chloride 101 (98-107) mmol/L Carbon Dioxide 25 (22-32) mmol/L BUN 21 H (7-17) mg/dL Creatinine 0.53 (0.52-1.04) mg/dL Estimated GFR > 60 (>60) mL/min BUN/Creatinine Ratio 39.6 H (6-22) Glucose 107 H (70-99) mg/dL Calcium 9.9 (8.4-10.2) mg/dL Total Bilirubin 0.4 (0.2-1.3) mg/dL AST 29 (14-36) IU/L ALT 23 (<35) IU/L Alkaline Phosphatase 91 (38-126) U/L Total Protein 6.8 (6.3-8.2) g/dL Albumin 4.1 (3.5-5.0) g/dL Globulin 2.7 (1.7-4.1) g/dL Albumin/Globulin Ratio 1.5 (1.0-2.8) Lipase 675 H (23-300) U/L Urine RBC 0-1/hpf (0-5/HPF) Urine WBC None seen (0-5/HPF) Ur Squamous Epith Cells 0-1 /hpf (0-5/HPF) Urine Bacteria None seen (None) Ur Culture Indicated? Cult not indicated Vol Urine Centrifuged 10ml (spun) Urine Dip Bedside Urine Glucose Negative Bedside Urine Bilirubin - Negative Bedside Urine Ketone - Negative Urine Specific [place] 1.015 Bedside Urine Occult Blood +/- Bedside Urine pH 6.0 Bedside Urine Protein - Negative Bedside Urine Urobilinogen - Negative Bedside Urine Nitrite - Negative Bedside Urine Leukocytes - Negative Esterase MDM Narrative Medical decision making narrative: 74-year-old with back pain had outpatient lab work showing elevated lipase, here for further evaluation and possible imaging. Afebrile, sirs screen negative. No tenderness anterior abdomen. No tenderness posterior lumbar thoracic spine. Labs pending. White blood cell count not elevated, hemoglobin slight decreased. Lipase 675 elevated, with normal liver functions. Urinalysis negative. Renal function adequate, CT abdomen and pelvis ordered. CT abdomen and pelvis with IV contrast. Impressions: ?Questionable gastric diverticulum versus gastric ulcer measuring 4.3 x 3 cm. Recommend GI consultation and possible upper endoscopy. No evidence of colitis diverticulitis bowel obstruction or obstructive uropathy.. See tele radiology report. In solid organs section, no pancreatic lesions described. CT abdomen and pelvis report copy given to patient with explanation. Consider EGD, possible gastric ulcer. No pancreatic lesions described. There maybe a gastric ulcer causing inflammation to the local head of the pancreas area. Consider upper endoscopy in follow up. She is awaiting colonoscopy with [facility], consider calling their office to expedite endoscopy examinations, to include upper endoscopy. Contact information given for [facility]. Might need referral from her regular provider. Discharged home with friends. Return precautions discussed. Discharge Plan Departure Patient Disposition: Home Clinical Impression: Abdominal pain, Back pain, Lesion of stomach, Elevated lipase Activity Restrictions/Additional Instructions: Abdominal and back pain of unclear cause, awaiting screening colonoscopy next month. Lab work from clinic showed elevated lipase of unclear etiology. Here for imaging. Repeat labs showed elevated lipase with normal liver functions. CT abdomen and pelvis showed post adrenalectomy changes on the right side, no pancreatic lesions, there was mention of a stomach/gastric lesion that might be a diverticulum outpouching, versus a gastric/stomach ulcer. Advised to fill the pantoprazole prescription from clinic and take the antacid as directed. Contact office of [facility] to see if you are lower endoscopy could also be with upper endoscopy, and also in expedited earlier timeframe. You might need referral from your regular provider. Contact information provided for General surgery. Return earlier to this/nearest emergency department for any change worsening symptoms or any concerns prior. Avoid alcohol, ibuprofen, naproxen, aspirin. Prescriptions: No Action sodium,potassium,mag sulfates [Suprep Bowel Prep Kit] 17.5-3.13-1.6 gram recon soln See Rx Instructions PO .COMPLEX Qty: 354 0RF Rx Instructions: take as directed by Physician oxybutynin chloride 5 mg tablet extended release 24hr 5 mg PO DAILY sertraline 100 mg tablet 150 mg PO BEDTIME trazodone 50 mg tablet 25 mg PO BEDTIME dicyclomine 20 mg tablet 20 mg PO DAILY lorazepam 1 mg tablet 0.5 mg PO BID MDD 1 mg PRN (Reason: Anxiety) estradiol 0.01 % (0.1 mg/gram) Cream 1 g VAGINAL 2XW cholecalciferol (vitamin D3) 25 mcg (1,000 unit) Capsule 25 mcg PO DAILY omega-3 fatty acids Capsule 1 cap PO DAILY [place] Oil 1,000 mg Capsule 1 cap PO DAILY vit C-vit B-yjtvah-hfe-om-3 [id number] nn-grpl-vy-mg Capsule 1 cap PO DAILY ascorbic acid (vitamin C) 1,000 mg Capsule 1 g PO DAILY Referrals: Ad Alonso MD [Physician] - Junior Hagan MD [Primary Care Provider] - Stand Alone Forms: Patient Portal/API/Survey
[2024-09-03 01:04] LABS: Add Manual Diff / Slide Review NO; Basophils Absolute Auto 0 /uL (0-100); Basophils Percent Auto 0.5 % (0-2); Eosinophils Absolute Auto 100 /uL (0-450); Eosinophils Percent Auto 1.4 % (2-4); Hematocrit 33.2 % (36-46); Hemoglobin 11.7 g/dL (12.0-16.0); Lymphocytes Absolute Auto 1600 /uL (1100-4500); Lymphocytes Percent Auto 28.6 % (25-40); Mean Corpuscular HGB Conc 35.1 % (30-36); Mean Corpuscular Hemoglobin 29.5 PG (26-34); Monocytes Absolute Auto 500 /uL (0-900); Monocytes Percent Auto 9.1 % (3-14); Neutrophils Absolute Auto 3300 /uL (1500-7000); Neutrophils Percent Auto 60.4 % (50-75); Platelet Count 204 X10^3/uL (150-400); Red Blood Cell Count 3.95 X10^6/uL (4.0-5.2); Red Cell Distribution Width 14.2 % (11.6-14.8); White Blood Cell Count 5.4 X10^3/uL (4.5-11.0)
[2024-09-03 01:21] LABS: Alanine Aminotransferase 23 IU/L (<35); Albumin 4.1 g/dL (3.5-5.0); Albumin Globulin Ratio 1.5 (1.0-2.8); Alkaline Phosphatase 91 U/L (38-126); Aspartate Aminotransferase 29 IU/L (14-36); BUN Creatinine Ratio 39.6 (6-22); Bilirubin Total 0.4 mg/dL (0.2-1.3); Blood Urea Nitrogen 21 mg/dL (7-17); Calcium 9.9 mg/dL (8.4-10.2); Carbon Dioxide 25 mmol/L (22-32); Chloride 101 mmol/L (98-107); Estimated Glomerular Filt Rate > 60 mL/min (>60); Globulin 2.7 g/dL (1.7-4.1); Glucose 107 mg/dL (70-99); HEMOLYSIS < 15 (0-50); Lipase 675 U/L (23-300); Potassium 3.9 mmol/L (3.4-5.1); Sodium 133 mmol/L (137-145); Total Protein 6.8 g/dL (6.3-8.2)
[2024-09-03 01:29] VITALS: BP 140/66; PULSE 52; O2SAT 99
[2024-09-03 01:30] VITALS: BP 138/65; PULSE 52; RESP 13; O2SAT 100
--- NOTE | 2024-09-03 01:50 | DI.CT.S_ITS ---
PROCEDURE: CT ABDOMEN PELVIS W CON INDICATIONS: abd pain, back pain TECHNIQUE: After the administration of intravenous contrast, axial sections acquired from the lung bases to the pubic symphysis. Coronal and sagittal reformats were performed. For radiation dose reduction, the following was used: automated exposure control, adjustment of mA and/or kV according to patient size. COMPARISON: [facility], CT, CT ABDOMEN PELVIS W CON, 02/19/2023, 7:56. FINDINGS: Image quality: Diagnostic. Lower Chest: No significant findings. ABDOMEN: Liver: Stable hemangioma in right and left hepatic lobes unchanged in size and appearance from prior study. Nodular liver contour unchanged from prior study. Gallbladder: Gallbladder is surgically absent. Biliary ducts: Chronic mild dilatation of intra and extrahepatic ducts unchanged from prior study. Pancreas: No ductal dilation. Spleen: Size is within normal limits. Adrenal Glands: No adrenal nodules. Kidneys and Ureters: No hydronephrosis. No solid mass. No complex renal cystic lesion which requires follow up. Stomach and Bowel: Peg tube balloon is seen within the stomach lumen. There is significant gastric wall thickening. Questionable gastric ulcer versus diverticulum in left upper quadrant measures 4.3 x 3 cm in size. There is also fluid filling of the small bowel loops with mild bowel wall thickening and enhancement concerning for enteritis. Oczw-nc-oytxacul fecal stasis in the colon is seen. No CT evidence of acute diverticulitis. No abscess collection. Peritoneum: No abnormal intraperitoneal fluid. No free air. Ventral Wall: No significant ventral hernia. Abdominal Nodes: No retroperitoneal or mesenteric adenopathy by size criteria. Vessels: Aorta and inferior vena cava are normal in size. PELVIS: Pelvic Organs: 2.4 x 2.6 cm cystic structure is seen in left adnexa. Bladder: No bladder wall thickening, accounting for underdistention. Pelvic Nodes: No enlarged lymph nodes. Miscellaneous: No inguinal hernias are seen. Bones: No aggressive osseous abnormality. Spondylitic changes throughout lower thoracic and lumbar spine is seen. IMPRESSION: 1. Finding is concerning for gastritis and enteritis. Possible gastric diverticulum with gastric ulcer as described above. Clinical and possible endoscopic correlation is recommended. 2. No bowel obstruction. Mild constipation. No abscess collection. No free fluid or free air. 3. Possible left ovarian cyst as above. 4. Other chronic findings as described above. No significant discrepancies from preliminary reading. Dictated by: Jeffery Best M.D. on 09/03/2024 at 8:35 Approved by: Jeffery Best M.D. on 09/03/2024 at 8:52
[2024-09-03 02:25] LABS: Bacteria Urine None Seen; Culture Indicated Urine Cult Not Indicated; RBC Urine 0-1/HPF (0-5/HPF); Squamous Epithelial Cell Urine 0-1 /HPF (0-5/HPF); Urine Volume 10mL (spun); WBC Urine None Seen (0-5/HPF)
[2024-09-03 03:00] VITALS: BP 143/63; PULSE 52; RESP 20; TEMP 36.7; O2SAT 100
== END 2024-09-03 03:19 | disposition home or self-care (01) ==
PROVIDERS: Emergency Provider Emergency Medicine; PCP Family Medicine
DX: R10.9 Unspecified abdominal pain (principal); M54.9 Dorsalgia, unspecified; K31.9 Disease of stomach and duodenum, unspecified; R74.8 Abnormal levels of other serum enzymes
CPT/HCPCS: 36415; 74177; 80053; 81003; 81015; 83690; 85025; 99283; 99284; Q9967

== ENCOUNTER 2024-09-23 13:01 | Day surgery (SDC) | payer MEDICARE, OTHER, SELFPAY ==
[2023-03-24 22:28] VITALS: BMI 21.2
--- NOTE | 2024-09-23 | PATH_ITS ---
[facility] Accession Number: [id number] No. of containers..03 Tissue . 01 Material submitted: . PART A: gastrointestinal site - GASTRIC BX PART B: colon - COLON, ASCENDING POLYP PART C: colon - COLON, RANDOM . 01 Clinical history: . A: R/O H PYLORI . 01 Diagnosis: Part A: GASTRIC BX: Gastric antral and oxyntic mucosa with no diagnostic alterations. No Helicobacter organisms identified on H/E stain. No intestinal metaplasia, dysplasia, or malignancy identified. . Part B: COLON, ASCENDING POLYP: Tubular adenoma. . Part C: COLON, RANDOM: Colonic mucosa with no diagnostic alterations. No active inflammation, granulomas, dysplasia, or malignancy identified. No evidence of colitis. [facility] 09/28/2024 1527 Local . 01 Electronically signed: . Anand Cartagena MD, Pathologist NPI- [id number] . 01 Gross description: . Part A: GASTRIC BX: Received in formalin are 2 fragment(s) of rushing, soft tissue measuring 0.1 x 0.1 x 0.1 cm to 0.4 x 0.3 x 0.2 cm submitted entirely in 1 cassette(s) . Part B: COLON, ASCENDING POLYP: Received in formalin is 1 fragment(s) of rushing, soft tissue measuring 0.2 x 0.2 x 0.2 cm submitted entirely in 1 cassette(s) . Part C: COLON, RANDOM: Received in formalin are multiple fragment(s) of rushing, soft tissue measuring 0.1 x 0.1 x 0.1 cm to 0.3 x 0.2 x 0.2 cm submitted entirely in 1 cassette(s) /MICAELA 09/28/2024 1527 Local . 01 Pathologist provided ICD-10: D12.2, K25.9, Z86.0100 . 01 CPT . 826261, 793037, 442155 Specimen Comment: A courtesy copy of this report has been sent to [phone] Performed at: [address] [id number] MD Anand Cartagena MD Phone: [phone]
--- NOTE | 2024-09-23 14:18 | P.HP_ITS ---
History of Present Illness History of Present Illness Date Patient Seen: 09/23/24 Chief complaint: EGD/Colonoscopy Narrative: History of epigastric pain with elevated amylase now resolved. CT scan showed possible gastric ulcer versus diverticulum. Need for EGD to sort out. In the meantime, patient was placed on pantoprazole over the last month than 50% of her pain has resolved. Also needs colorectal cancer screening. Has abdominal pain associated with some looser stools and a ?yellow color? of her stools. Need to rule out underlying colitis though doubtful. Liver chemistries normal though she does have chronic dilatation of her biliary tree status post cholecystectomy [facility] Medical History (Updated 09/18/24 @ 00:00 by ) Anxiety and depression Urine incontinence Depression Ganglion cyst Social History household members: spouse and children alcohol intake: never Meds Home Medications and Allergies Home Medications Medication Instructions Recorded Confirmed Type oxybutynin chloride 5 mg 5 mg PO DAILY Bladder spasms 04/24/21 09/23/24 History tablet,extended release 24 hr sertraline 100 mg tablet 150 mg PO BEDTIME Depression 04/24/21 09/23/24 History trazodone 50 mg tablet 25 mg PO BEDTIME Insomnia 04/24/21 09/23/24 History ascorbic acid (vitamin C) 1,000 mg 1 g PO DAILY Supplement 03/24/23 03/24/23 History capsule cholecalciferol (vitamin D3) 25 25 mcg PO DAILY Supplement 03/24/23 03/24/23 History mcg (1,000 unit) capsule dicyclomine 20 mg tablet 20 mg PO DAILY abdominal pain 03/24/23 03/24/23 History estradiol 0.01% (0.1 mg/gram) 1 g vaginal 2XW Hormone replacement 03/24/23 03/24/23 History vaginal cream evening primrose oil-linoleic 1 cap PO DAILY Supplement 03/24/23 03/24/23 History acid-gamolenic acid 1,000 mg capsule ([place] Oil) lorazepam 1 mg tablet 0.5 mg PO BID PRN Anxiety 03/24/23 09/23/24 History omega-3 fatty acids 1 cap PO DAILY Supplement 03/24/23 03/24/23 History vit C-vit V-eeroif-dpnwiqbp-omega 1 cap PO DAILY [facility] 03/24/23 03/24/23 History 3 100 mg-15 unit-2 mg-100 mg capsule sodium,potassium,mag sulfates 17.5 See Rx Instructions PO .COMPLEX 08/31/24 Rx gram-3.13 gram-1.6 gram oral soln #354 mL (Suprep Bowel Prep Kit) apixaban 5 mg tablet 5 mg PO BID 09/23/24 09/23/24 History pantoprazole 40 mg tablet,delayed 40 mg PO DAILY 09/23/24 09/23/24 History release Allergies Allergy/AdvReac Type Severity Reaction Status Date / Time No Known Drug Allergies Allergy Verified 09/23/24 14:05 Exam Narrative Exam Narrative: Oropharynx free of lesions Chest clear to auscultation percussion Cardiac exam reveals no S3 or murmur Assessment & Plan Assessment & Plan narrative: Abdominal pain with parents cirrhosis on exam and chronic biliary dilatation with normal liver chemistries and a lipase that has returned to normal but CT showing possible gastric ulcer need for EGD Colonoscopy to performed for screening. Biopsies to be taken to rule out microscopic colitis. Risks, benefits, alternatives have been explained. Time-Based Coding :: [TOTAL MINUTES] spent with patient and on the chart (including review of chart, obtaining history, exam, reviewing outside data, placing orders, documenting exam and treatment plan, and counseling patient) on [DATE]. PROFEE Residency Coordinator Document charge(s): No
--- NOTE | 2024-09-23 14:21 | P.OP.EGD&C_ITS ---
Operative Date/Time/Diagnoses Date of procedure: 09/23/24 Time of procedure: 15:19 Pre-op diagnosis: See indication and findings Post-op diagnosis: same Procedure & Clinicians Study performed: EGD and colonoscopy Same procedure as scheduled: Yes Indications: Abdominal pain as above. Also need for colorectal cancer screening and rule out microscopic colitis Surgeon: John Ramos Procedure Notes Procedure in detail: After informed consent was obtained the patient was placed in left lateral decubitus position. The video upper scope was placed into the oropharynx and with the patient's help swallowed the esophagus. The esophagus stomach and duodenal were carefully examined. On withdrawal, retroflexed view the GE junction was performed. The scope was removed. The patient tolerated procedure well. The patient was then turned in the colonoscope substituted. This was inserted into the rectum and easily advanced cecum. Preparation was good. On slow withdrawal mucosa was carefully examined. The scope was removed. The patient tolerated procedure well. Blood loss none Complications none Sedation mac Findings EGD 1. Normal esophagus without any evidence of varices. GE junction somewhat wide open 2. Striped gastric erythema in the antrum. Biopsies taken to rule out Helicobacter. Retroflexed view shows no evidence of gastric varices and mucosa he has not clearly suggestive of gastropathy of portal hypertension 3. Normal duodenal bulb and sweep Colonoscopy 1. Normal colonoscopy to cecum. Random biopsies taken to rule out microscopic colitis Given the patient still has abdominal pain and we have not found out why I think we need a little further workup. I would suggest that she be scheduled for abdominal ultrasound. This would be to evaluate her biliary tree and make sure there is no evidence for a common duct stone. Ultrasound would be better than CT for findings this. I would also like to recheck liver chemistries amylase and lipase, alpha fetoprotein. I will also try to track down her records on workup of her cirrhosis which she said involved a biopsy at [place] in the past. In the meanwhile she should stay on her pantoprazole as it seems to have been helping. We will be in touch regarding the biopsies.
[2024-09-23 14:29] VITALS: BP 129/70; PULSE 58; RESP 12; TEMP 36.3; O2SAT 100
[2024-09-23] MEDS: LACTATED RINGERS 1,000 ML 42 ML IV (14:31)
[2024-09-23 15:18] VITALS: BP 95/51; PULSE 51; RESP 17; TEMP 36.2; O2SAT 98
[2024-09-23 15:32] VITALS: BP 93/54; PULSE 48; RESP 11; O2SAT 98
== END 2024-09-23 15:40 | disposition home or self-care (01) ==
PROVIDERS: PCP Family Medicine; Referring Provider Internal Medicine Gastroenterology; Visit Provider Internal Medicine Gastroenterology
PROC: 0DJD8ZZ Inspection of Lower Intestinal Tract, Via Natural or Artificial Opening Endoscopic (ICD-10-PCS; CPT 45378; principal; 2024-09-23 14:30)
PROC: 0DJ08ZZ Inspection of Upper Intestinal Tract, Via Natural or Artificial Opening Endoscopic (ICD-10-PCS; CPT 45380; 2024-09-23 14:30)
DX: R10.9 Unspecified abdominal pain (principal); D12.2 Benign neoplasm of ascending colon; R74.8 Abnormal levels of other serum enzymes; K25.9 Gastric ulcer, unspecified as acute or chronic, without hemorrhage or perforation
CPT/HCPCS: 45380; 43239; 36415; 82105; 82150; 83690; J2704; J3010

== ENCOUNTER → 2024-09-23 15:49 | Outpatient (CLI) | payer MEDICARE, OTHER, SELFPAY ==
[2023-03-24 22:28] VITALS: BMI 21.2
[2024-09-23 18:24] LABS: Amylase 68 U/L (30-110); Lipase 60 U/L (23-300)
[2024-09-25 10:09] LABS: Alpha Fetoprotein 7.5 ng/mL (0.0-9.2)
== END ==
PROVIDERS: Internal Medicine Gastroenterology; PCP Family Medicine; Referring Provider Family Medicine; Visit Provider Family Medicine
DX: R74.8 Abnormal levels of other serum enzymes (principal); K25.9 Gastric ulcer, unspecified as acute or chronic, without hemorrhage or perforation
CPT/HCPCS: 36415; 82105; 82150; 83690

== ENCOUNTER → 2024-09-29 08:54 | Outpatient (CLI) | payer MEDICARE, OTHER, SELFPAY ==
[2023-03-24 22:28] VITALS: BMI 21.2
--- NOTE | 2024-09-29 08:57 | DI.US.S_ITS ---
PROCEDURE: US ABDOMEN LIMITED INDICATIONS: POSSIBLE CHOLEDOCHOLITHIASIS TECHNIQUE: Real-time scanning was performed of the abdominal and retroperitoneal organs, with image documentation. COMPARISON: [facility], CT, CT ABDOMEN PELVIS W CON, 09/03/2024, 1:59. FINDINGS: Liver: Liver is normal in size and homogeneous in echotexture. Gallbladder: Absent. Biliary ducts: Prominent intrahepatic biliary tree, within normal limits status post cholecystectomy. Common bile duct measures 3.3 millimeters, without filling defect. Pancreas: Visualized portions of the pancreas are sonographically normal. Miscellaneous: No free abdominal fluid. IMPRESSION: No extrahepatic biliary dilation or filling defect within the common bile duct. Dictated by: Guilherme Willard M.D. on 09/29/2024 at 16:15 Approved by: Guilherme Willard M.D. on 09/29/2024 at 16:17
== END ==
LOC: US 08:56
PROVIDERS: PCP Family Medicine; Referring Provider Internal Medicine Gastroenterology; Visit Provider Internal Medicine Gastroenterology
DX: R10.9 Unspecified abdominal pain (principal); Z90.49 Acquired absence of other specified parts of digestive tract
CPT/HCPCS: 76705

== ENCOUNTER → 2024-11-03 14:12 | Outpatient (CLI) | payer MEDICARE, OTHER, SELFPAY ==
[2023-03-24 22:28] VITALS: BMI 21.2
--- NOTE | 2024-11-03 14:14 | DI.RAD.S_ITS ---
PROCEDURE: XR DEXA AXIAL SKELETON INDICATIONS: osteopenia screening COMPARISON: [facility], CR, XR DEXA AXIAL SKELETON, 08/02/2022, 10:06. FINDINGS: Lumbar Spine: Bone mineral density 0.889 (previously 0.897) g/cm2, T score -1.4 (previously -1.4). Left Femoral Neck: Bone mineral density 0.748 (previously 0.756) g/cm2, T score -0.9 (previously -0.8). Left Hip: Bone mineral density 0.768 (previously 0.780) g/cm2, T score -1.4 (previously -1.3). Fracture Risk Calculation (when applicable): 10-year fracture risk of a major osteoporotic fracture 7.8 percent and of a hip fracture 1.0 percent. (T score greater or equal to -1.0 to: NORMAL) (T score from -1.1 to -2.4: OSTEOPENIA) (T score less than or equal to -2.5: OSTEOPOROSIS) IMPRESSION: Osteopenia--- recommend repeat DEXA in 2-3 years for reassessment. Follow-up guidelines as follows: Osteoporosis: Consider a repeat DEXA and Vertebral Fracture Assessment (VFA) exam in 2 years or sooner if medically necessary, to reassess this patient's status. Osteopenia: Consider a repeat DEXA in 2-3 years to reassess this patient's status, or if there is a new clinical indication. Normal: Consider a repeat DEXA in 5 years or sooner, or if there is a new clinical indication. All treatment decisions require clinical judgment and consideration of individual patient factors, including patient preferences, comorbidities, previous drug use, risk factors not captured in the FRAX model (e.g., frailty, falls, vitamin D deficiency, increased bone turnover, interval significant decline in bone density ) and possible under- or over-estimation of fracture risk by FRAX. In addition, the NOF Guide recommends that FDA-approved medical therapies be considered in postmenopausal women and men age >= 50 years with a: * Hip or vertebral (clinical or morphometric) fracture * T-score of <=-2.5 at the spine or hip * Ten-year fracture probability by FRAX of >= 3% for hip fracture or >=20% for major osteoporotic fracture. Dictated by: Aren Hall M.D. on 11/03/2024 at 19:13 Approved by: Aren Hall M.D. on 11/03/2024 at 19:17
== END ==
LOC: RAD 14:13
PROVIDERS: PCP Family Medicine; Referring Provider Family Medicine; Visit Provider Family Medicine
DX: M85.89 Other specified disorders of bone density and structure, multiple sites (principal); Z78.0 Asymptomatic menopausal state
CPT/HCPCS: 77080